=== PATIENT | male | born 1955 | race Asian ===

== ENCOUNTER 2016-08-28 15:16 | Inpatient (IN) | payer MEDICARE, OTHER ==
[~2016-08-28] VITALS: Ht 175.3 cm; Wt 87.1 kg
[~2016-08-28 15:16] MED LIST: ASPI-1093 PO; ATOR40TA28 PO; CARV12 PO; CINA30 PO; DSS100 PO; INSLAN SQ; INSNOV SQ; LISI-660 PO; PANT40TA25 PO; SEVEC800 PO; TICA90TA PO
[2016-08-28 15:26] LABS: GLUCOSE,POINT OF CARE 197 MG/DL (70-110)
[2016-08-28 16:10] LABS: HEMATOCRIT 28.6 % (41-53); HEMOGLOBIN 9.5 g/dL (13.5-17.5); MEAN CORPUSCULAR HEMOGLOBIN 28.6 pg (26.0-34.0); MEAN CORPUSCULAR HGB CONC 33.1 G/dL (31.0-37.0); MEAN CORPUSCULAR VOLUME 86 fL (80-100); PLATELET COUNT (AUTO) 298 K/uL (150-450); RED BLOOD CELL COUNT(AUTO) 3.32 MIL/uL (4.50-5.90); RED CELL DISTRIBUTION WIDTH 16.9 % (11.5-14.5); WHITE BLOOD COUNT (AUTO) 16.1 K/uL (4.5-11.0)
[2016-08-28 16:37] LABS: B-TYPE NATRIURETIC PEPTIDE 2850 pg/mL (0-100)
[2016-08-28 16:41] LABS: ANION GAP 14 mmol/L (8-16); CALCIUM, TOTAL 9.7 mg/dL (8.8-10.5); CARBON DIOXIDE 27 mmol/L (22-29); CHLORIDE 88 mmol/L (98-107); CREATININE 7.67 mg/dL (0.60-1.30); GLOMERULAR FILTR. RATE CALC 7 mL/min (>60); POTASSIUM 3.9 mmol/L (3.5-5.1); SODIUM SERUM 129 mmol/L (136-145); UREA NITROGEN, BLOOD 49 mg/dL (7-18)
[2016-08-28 16:45] LABS: BAND NEUTROPHILS % (MANUAL) 3 % (1-5); EOSINOPHILS % (MANUAL) 1 % (1-6); LYMPHOCYTES % (MANUAL) 8 % (22-44); REACTIVE LYMPHOCYTES 1 % (0-0); TOTAL CELLS COUNTED 100
[2016-08-28 16:48] LABS: INR 1.2 (0.9-1.1); PROTHROMBIN TIME 12.5 SEC (9.4-11.6)
[2016-08-28 16:50] LABS: WBC MORPHOLOGY TOXIC VACUOLATION
[2016-08-28 17:10] LABS: ALANINE AMINOTRANSFERASE 32 U/L (12-78); ALBUMIN 2.4 g/dL (3.4-5.0); ASPARTATE AMINOTRANSFERASE 63 U/L (15-37); BILIRUBIN,TOTAL 0.9 mg/dL (0.1-1.0); CREATINE KINASE MB 2.2 ng/mL (0-5); CREATINE KINASE, TOTAL 657 U/L (39-308); TOTAL PROTEIN, SERUM 7.3 g/dL (6.4-8.2)
[2016-08-28] MEDS ORDERED: KETOROLAC TROMETHAMINE 30 MG/ML VIAL IVP ONE (20:15)
[2016-08-28] MEDS ORDERED: HYDROmorphone 2 MG/ML SYRINGE IVP ONE (20:15)
[2016-08-28] MEDS ORDERED: ONDANSETRON HCL 4 MG/2 ML VIAL IVP ONE (20:15)
[2016-08-28] MEDS ORDERED: LIDOCAINE HCL BUFFERED 1% 20 ML VIAL INJ ONE (22:00)
[2016-08-28] MEDS ORDERED: ACETAMINOPHEN 325 MG TABLET PO PRN (22:30)
[2016-08-28] MEDS ORDERED: VANCOMYCIN HCL 1 GM/D5% WATER 200 ML IV ONE (22:30)
[2016-08-28] MEDS ORDERED: ONDANSETRON HCL 4 MG/2 ML VIAL IVP PRN (22:30)
[2016-08-28] MEDS ORDERED: 0.9% SODIUM CHLORIDE 10 ML SYRINGE IVP PRN (22:30)
[2016-08-28 23:03] LABS: GLUCOSE, CSF 107 mg/dL (50-80); TOTAL PROTEIN, CSF 38 mg/dL (15-45)
[2016-08-28 23:10] VITALS: BP 96/54
[2016-08-28] MEDS ORDERED: SODIUM CHLORIDE 0.9% 250 ML IV ONE (23:16)
[2016-08-28 23:52] LABS: APPEARANCE,CSF CLEAR (CLEAR); COLOR,CSF COLORLESS (COLORLESS); RED BLOOD CELL1,CSF 21.1 CMM (0-0)
[2016-08-29] MEDS ORDERED: INFLUENZA VIRUS VACCINE QVS 2016-17 (3YR+)/PF 60 MCG/0.5 ML SYRINGE IM ONE (00:45)
[2016-08-29] MEDS ORDERED: PNEUMOCOCCAL VACCINE POLYVALENT 0.5 ML VIAL [PPSV23] IM ONE (00:45)
[2016-08-29 04:34] VITALS: BP 99/59
[2016-08-29 07:21] VITALS: BP 132/98
[2016-08-29] MEDS: ASPIRIN 81 MG EC TABLET PO SCH (10:00)
[2016-08-29] MEDS ORDERED: DOCUSATE SODIUM 100 MG CAPSULE PO SCH (10:00)
[2016-08-29] MEDS: TICAGRELOR 90 MG TABLET PO SCH ×2 (10:00→21:45)
[2016-08-29] MEDS: CARVEDILOL 12.5 MG TABLET PO SCH ×2 (10:00→21:00)
[2016-08-29] MEDS: LISINOPRIL 5 MG TABLET PO SCH (10:00)
[2016-08-29] MEDS ORDERED: 0.9% SODIUM CHLORIDE 10 ML SYRINGE IVP PRN (10:15)
[2016-08-29] MEDS ORDERED: ONDANSETRON HCL 4 MG/2 ML VIAL IVP PRN (10:15)
[2016-08-29] MEDS ORDERED: DEXTROSE 50%-WATER 25 GM/50 ML SYRINGE IVP PRN (10:15)
[2016-08-29] MEDS: PANTOPRAZOLE SODIUM 40 MG/VIAL IVP SCH (10:15)
[2016-08-29] MEDS: DOCUSATE SODIUM 100 MG CAPSULE PO SCH ×2 (10:15→21:45)
[2016-08-29] MEDS ORDERED: SODIUM CHLORIDE 0.9% 2,000 ML IV ONE (10:32)
[2016-08-29] MEDS ORDERED: VANCOMYCIN HCL 1 GM/D5% WATER 200 ML IV ONE (11:00)
[2016-08-29 11:31] LABS: GLUCOSE COMMENT 1 Received Meds; GLUCOSE,POINT OF CARE 363 MG/DL (70-110)
[2016-08-29] MEDS: OxyCODONE HCL/ACETAMINOPHEN 5-325 MG TABLET PO PRN (13:02)
[2016-08-29] MEDS: INSULIN ASPART 100 UNITS/ML SQ PRN ×2 (13:28→17:16)
[2016-08-29] MEDS ORDERED: VANCOMYCIN HCL 1 GM/D5% WATER 200 ML IV PRN (14:00)
[2016-08-29] MEDS: SEVELAMER CARBONATE 800 MG TABLET PO SCH ×2 (14:50→18:00)
[2016-08-29 15:19] VITALS: BP 87/48
[2016-08-29] MEDS ORDERED: SODIUM CHLORIDE 0.9% 500 ML IV ONE (15:57)
[2016-08-29] MEDS ORDERED: DiphenhydrAMINE HCL 50 MG/ML VIAL IM ONE (16:53)
[2016-08-29] MEDS ORDERED: LIDOCAINE HCL/PF 1% 2 ML VIAL IM ONE (16:53)
[2016-08-29 17:31] LABS: GLUCOSE COMMENT 1 Received Meds; GLUCOSE,POINT OF CARE 170 MG/DL (70-110)
[2016-08-29 19:24] VITALS: BP 94/48
[2016-08-29 20:30] VITALS: BP 102/52
[2016-08-29] MEDS: ATORVASTATIN CALCIUM 40 MG TABLET PO SCH (21:47)
[2016-08-29 23:36] LABS: GLUCOSE COMMENT 1 Received Meds; GLUCOSE,POINT OF CARE 194 MG/DL (70-110)
[2016-08-30] VITALS (7 sets, daily range): BP systolic 80–123; BP diastolic 39–69
[2016-08-30] MEDS: INSULIN ASPART 100 UNITS/ML SQ PRN ×4 (05:38→21:16)
[2016-08-30 06:21] LABS: GLUCOSE COMMENT 1 Received Meds; GLUCOSE,POINT OF CARE 159 MG/DL (70-110)
[2016-08-30] MEDS: OxyCODONE HCL/ACETAMINOPHEN 5-325 MG TABLET PO PRN ×2 (06:32→09:11)
[2016-08-30 06:46] LABS: EOSINOPHILS % (AUTO) 0.8 % (1.0-6.0); HEMOGLOBIN 8.1 g/dL (13.5-17.5); LYMPHOCYTES # (AUTO) 0.8 K/uL (1.0-4.8); LYMPHOCYTES % (AUTO) 3.3 % (22.0-44.0); MEAN CORPUSCULAR HEMOGLOBIN 28.5 pg (26.0-34.0); MEAN CORPUSCULAR HGB CONC 32.2 G/dL (31.0-37.0); MEAN CORPUSCULAR VOLUME 88 fL (80-100); MONOCYTES # (AUTO) 1.9 K/uL (0.1-1.0); MONOCYTES % (AUTO) 7.7 % (2.0-9.0); NEUTROPHILS # (AUTO) 21.5 K/uL (1.8-7.7); PLATELET COUNT (AUTO) 247 K/uL (150-450); RED BLOOD CELL COUNT(AUTO) 2.83 MIL/uL (4.50-5.90); WHITE BLOOD COUNT (AUTO) 24.4 K/uL (4.5-11.0)
[2016-08-30 06:52] LABS: NEUTROPHILS % (AUTO) 88.2 % (40.0-70.0)
[2016-08-30 07:05] LABS: CALCIUM, TOTAL 8.8 mg/dL (8.8-10.5); CREATININE 6.36 mg/dL (0.60-1.30); POTASSIUM 4.2 mmol/L (3.5-5.1)
[2016-08-30] MEDS: CARVEDILOL 12.5 MG TABLET PO SCH ×2 (07:49→21:00)
[2016-08-30] MEDS: LISINOPRIL 5 MG TABLET PO SCH (07:49)
[2016-08-30] MEDS: ASPIRIN 81 MG EC TABLET PO SCH (09:00)
[2016-08-30] MEDS: TICAGRELOR 90 MG TABLET PO SCH ×2 (09:11→21:00)
[2016-08-30] MEDS: DOCUSATE SODIUM 100 MG CAPSULE PO SCH ×2 (09:12→21:00)
[2016-08-30] MEDS: SEVELAMER CARBONATE 800 MG TABLET PO SCH ×3 (09:12→17:09)
[2016-08-30] MEDS: PANTOPRAZOLE SODIUM 40 MG/VIAL IVP SCH (09:12)
[2016-08-30] MEDS: CINACALCET HCL 30 MG TABLET PO SCH (09:12)
[2016-08-30] MEDS: INSULIN DETEMIR 100 UNITS/ML SQ SCH (09:32)
[2016-08-30 12:31] LABS: GLUCOSE,POINT OF CARE 285 MG/DL (70-110)
[2016-08-30] MEDS: MIDODRINE HCL 5 MG TABLET PO SCH ×2 (14:33→21:00)
[2016-08-30] MEDS ORDERED: INDIUM IN-111 OXYQUINOLINE/.5MCL ISOTOPE 1 EA INJ INJ ONE (15:45)
[2016-08-30] MEDS ORDERED: ACETAMINOPHEN 325 MG TABLET ONE (15:53)
[2016-08-30] MEDS: ACETAMINOPHEN 325 MG TABLET PO PRN (16:00)
[2016-08-30] MEDS ORDERED: PHENYLEPHRINE 200 MG/D5%-WATER 250 ML IV PRN (17:13)
[2016-08-30] MEDS ORDERED: ACETAMINOPHEN 650 MG RECTAL SUPPOSITORY PR PRN (17:15)
[2016-08-30] MEDS ORDERED: OSELTAMIVIR PHOSPHATE 30 MG CAPSULE PO PRN (21:00)
[2016-08-30] MEDS ORDERED: OSELTAMIVIR PHOSPHATE 30 MG CAPSULE PO ONE (21:00)
[2016-08-30] MEDS: ATORVASTATIN CALCIUM 40 MG TABLET PO SCH (21:00)
[2016-08-30] MEDS: DOXYCYCLINE 100 MG in DEXTROSE 5%-WATER 100 ML IV SCH (21:16)
[2016-08-31] VITALS (12 sets, daily range): BP systolic 93–153; BP diastolic 42–86
[2016-08-31 00:05] LABS: INFLUENZA TYPE B NEGATIVE FOR TYPE B (NEGATIVE)
[2016-08-31] MEDS: DEXTRAN 70 0.1%/HYPROMELL 0.3% 0.9 ML OPHTHALMIC SOLUTION [PF] OU SCH ×5 (00:13→23:46)
[2016-08-31] MEDS: OxyCODONE HCL/ACETAMINOPHEN 5-325 MG TABLET PO PRN ×4 (01:44→21:56)
[2016-08-31] MEDS: ATORVASTATIN CALCIUM 40 MG TABLET PO SCH ×2 (01:57→20:07)
[2016-08-31 05:10] LABS: EOSINOPHILS % (AUTO) 1.21 % (1.0-6.0); HEMATOCRIT 26.2 % (41-53); HEMOGLOBIN 8.8 g/dL (13.5-17.5); LYMPHOCYTES # (AUTO) 1.1 K/uL (1.0-4.8); LYMPHOCYTES % (AUTO) 4.2 % (22.0-44.0); MEAN CORPUSCULAR HEMOGLOBIN 29.1 pg (26.0-34.0); MEAN CORPUSCULAR HGB CONC 33.5 G/dL (31.0-37.0); MEAN CORPUSCULAR VOLUME 87 fL (80-100); MONOCYTES # (AUTO) 1.9 K/uL (0.1-1.0); MONOCYTES % (AUTO) 7.4 % (2.0-9.0); NEUTROPHILS # (AUTO) 21.9 K/uL (1.8-7.7); PLATELET COUNT (AUTO) 241 K/uL (150-450); RED BLOOD CELL COUNT(AUTO) 3.02 MIL/uL (4.50-5.90); RED CELL DISTRIBUTION WIDTH 17.3 % (11.5-14.5); WHITE BLOOD COUNT (AUTO) 25.2 K/uL (4.5-11.0)
[2016-08-31 05:22] LABS: NEUTROPHILS % (AUTO) 87.2 % (40.0-70.0)
[2016-08-31 05:27] LABS: CALCIUM, TOTAL 8.8 mg/dL (8.8-10.5); CREATININE 7.85 mg/dL (0.60-1.30); MAGNESIUM 2.2 mg/dL (1.80-2.40); PHOSPHORUS 2.9 mg/dL (2.5-4.9); POTASSIUM 4.7 mmol/L (3.5-5.1)
[2016-08-31 06:02] LABS: RBC MORPHOLOGY COMMENT ABNORMAL RBC MORPH
[2016-08-31] MEDS: INSULIN ASPART 100 UNITS/ML SQ PRN ×3 (06:23→21:15)
[2016-08-31] MEDS: SEVELAMER CARBONATE 800 MG TABLET PO SCH ×4 (08:00→17:21)
[2016-08-31] MEDS ORDERED: SODIUM CHLORIDE 0.9% 2,000 ML IV ONE (08:24)
[2016-08-31] MEDS: EPOETIN ALFA 10,000 UNITS/ML 2 ML VIAL SQ SCH (08:34)
[2016-08-31] MEDS: DOCUSATE SODIUM 100 MG CAPSULE PO SCH ×2 (08:34→20:07)
[2016-08-31] MEDS: ASPIRIN 81 MG EC TABLET PO SCH (08:34)
[2016-08-31] MEDS: MIDODRINE HCL 5 MG TABLET PO SCH ×2 (08:35→20:08)
[2016-08-31 08:36] LABS: GLUCOSE COMMENT 1 Received Meds; GLUCOSE,POINT OF CARE 245 MG/DL (70-110)
[2016-08-31 08:36] LABS: GLUCOSE COMMENT 1 Received Meds; GLUCOSE,POINT OF CARE 242 MG/DL (70-110)
[2016-08-31 08:36] LABS: GLUCOSE COMMENT 1 Received Meds; GLUCOSE,POINT OF CARE 303 MG/DL (70-110)
[2016-08-31] MEDS: TICAGRELOR 90 MG TABLET PO SCH ×2 (08:36→20:08)
[2016-08-31] MEDS: INSULIN DETEMIR 100 UNITS/ML SQ SCH (08:36)
[2016-08-31] MEDS: CARVEDILOL 12.5 MG TABLET PO SCH ×2 (08:37→20:08)
[2016-08-31] MEDS: LISINOPRIL 5 MG TABLET PO SCH (08:37)
[2016-08-31] MEDS ORDERED: EPOETIN ALFA 10,000 UNITS/ML 2 ML VIAL SQ SCH (09:00)
[2016-08-31] MEDS: -POST HEMODIALYSIS NOTE- MISC SCH (09:00)
[2016-08-31] MEDS ORDERED: DiphenhydrAMINE HCL 50 MG/ML VIAL IVP PRN (09:15)
[2016-08-31] MEDS ORDERED: LIDOCAINE HCL/PF 1% 2 ML VIAL ID PRN (09:15)
[2016-08-31] MEDS ORDERED: MANNITOL 25%-12.5 GM/50 ML VIAL IVP PRN (09:15)
[2016-08-31] MEDS ORDERED: ALBUMIN HUMAN 25%-12.5GM/50ML IV BOTTLE IV PRN (09:15)
[2016-08-31] MEDS: PANTOPRAZOLE SODIUM 40 MG/VIAL IVP SCH (12:32)
[2016-08-31] MEDS: DOXYCYCLINE 100 MG in DEXTROSE 5%-WATER 100 ML IV SCH ×2 (12:32→20:07)
[2016-08-31] MEDS ORDERED: DiphenhydrAMINE HCL 50 MG/ML VIAL IVP ONE (16:20)
[2016-08-31] MEDS ORDERED: MANNITOL 25%-12.5 GM/50 ML VIAL IVP ONE (16:20)
[2016-08-31] MEDS ORDERED: LIDOCAINE HCL/PF 1% 2 ML VIAL IM ONE (16:20)
[2016-08-31] MEDS: CeFAZolin 1 GM/DEXTROSE 50 ML IV SCH (22:38)
[2016-09-01] VITALS (10 sets, daily range): BP systolic 90–147; BP diastolic 49–88
[2016-09-01] MEDS: OxyCODONE HCL/ACETAMINOPHEN 5-325 MG TABLET PO PRN ×4 (04:06→16:58)
[2016-09-01] MEDS ORDERED: VANCOMYCIN HCL 1 GM/D5% WATER 200 ML IV ONE (05:00)
[2016-09-01] MEDS: DEXTRAN 70 0.1%/HYPROMELL 0.3% 0.9 ML OPHTHALMIC SOLUTION [PF] OU SCH ×3 (05:15→17:14)
[2016-09-01] MEDS: INSULIN ASPART 100 UNITS/ML SQ PRN ×3 (05:17→17:15)
[2016-09-01] MEDS: SEVELAMER CARBONATE 800 MG TABLET PO SCH ×3 (07:49→17:13)
[2016-09-01] MEDS: PANTOPRAZOLE SODIUM 40 MG/VIAL IVP SCH (07:49)
[2016-09-01] MEDS: ASPIRIN 81 MG EC TABLET PO SCH (07:50)
[2016-09-01] MEDS: MIDODRINE HCL 5 MG TABLET PO SCH ×2 (07:50→22:38)
[2016-09-01] MEDS: DOCUSATE SODIUM 100 MG CAPSULE PO SCH ×2 (07:50→22:38)
[2016-09-01] MEDS: CINACALCET HCL 30 MG TABLET PO SCH (07:50)
[2016-09-01] MEDS: TICAGRELOR 90 MG TABLET PO SCH ×2 (07:50→22:38)
[2016-09-01] MEDS: LISINOPRIL 5 MG TABLET PO SCH (07:52)
[2016-09-01] MEDS: INSULIN DETEMIR 100 UNITS/ML SQ SCH (07:52)
[2016-09-01] MEDS: CARVEDILOL 12.5 MG TABLET PO SCH ×2 (07:53→22:38)
[2016-09-01] MEDS: -POST HEMODIALYSIS NOTE- MISC SCH (07:53)
[2016-09-01] MEDS: DOXYCYCLINE 100 MG in DEXTROSE 5%-WATER 100 ML IV SCH ×2 (10:52→22:39)
[2016-09-01 13:57] LABS: BASOPHILS # (AUTO) 0.01 K/uL (0.00-0.20); BASOPHILS % (AUTO) 0.1 % (0.0-2.0); EOSINOPHILS # (AUTO) 0.32 K/uL (0.00-0.70); HEMATOCRIT 25.5 % (41-53); HEMOGLOBIN 8.4 g/dL (13.5-17.5); LYMPHOCYTES # (AUTO) 0.7 K/uL (1.0-4.8); LYMPHOCYTES % (AUTO) 3.3 % (22.0-44.0); MEAN CORPUSCULAR HEMOGLOBIN 28.7 pg (26.0-34.0); MEAN CORPUSCULAR HGB CONC 32.9 G/dL (31.0-37.0); MEAN CORPUSCULAR VOLUME 87 fL (80-100); MONOCYTES # (AUTO) 1.5 K/uL (0.1-1.0); MONOCYTES % (AUTO) 6.6 % (2.0-9.0); NEUTROPHILS # (AUTO) 19.9 K/uL (1.8-7.7); PLATELET COUNT (AUTO) 242 K/uL (150-450); RED BLOOD CELL COUNT(AUTO) 2.93 MIL/uL (4.50-5.90); RED CELL DISTRIBUTION WIDTH 18.1 % (11.5-14.5); WHITE BLOOD COUNT (AUTO) 22.5 K/uL (4.5-11.0)
[2016-09-01 13:58] LABS: NEUTROPHILS % (AUTO) 88.6 % (40.0-70.0)
[2016-09-01 14:09] LABS: CALCIUM, TOTAL 9.1 mg/dL (8.8-10.5); CREATININE 6.4 mg/dL (0.60-1.30); POTASSIUM 4.8 mmol/L (3.5-5.1)
[2016-09-01 14:25] LABS: RBC MORPHOLOGY COMMENT ABNORMAL RBC MORPH
[2016-09-01 15:45] LABS: ERYTHROCYTE SEDIMENTATION RATE 134 MM/HR (0-15)
[2016-09-01 17:51] LABS: GLUCOSE COMMENT 1 Received Meds; GLUCOSE,POINT OF CARE 164 MG/DL (70-110)
[2016-09-01 17:51] LABS: GLUCOSE COMMENT 1 Received Meds; GLUCOSE,POINT OF CARE 170 MG/DL (70-110)
[2016-09-01 17:51] LABS: GLUCOSE,POINT OF CARE 120 MG/DL (70-110)
[2016-09-01 17:51] LABS: GLUCOSE COMMENT 1 Received Meds; GLUCOSE,POINT OF CARE 193 MG/DL (70-110)
[2016-09-01] MEDS ORDERED: SODIUM CHLORIDE 0.9% 250 ML IV ONE (22:18)
[2016-09-01] MEDS: ATORVASTATIN CALCIUM 40 MG TABLET PO SCH (22:38)
[2016-09-02] VITALS (9 sets, daily range): BP systolic 68–121; BP diastolic 35–72
[2016-09-02] MEDS: CeFAZolin 1 GM/DEXTROSE 50 ML IV SCH ×2 (00:55→22:52)
[2016-09-02] MEDS: DEXTRAN 70 0.1%/HYPROMELL 0.3% 0.9 ML OPHTHALMIC SOLUTION [PF] OU SCH ×5 (00:55→23:57)
[2016-09-02 01:01] LABS: GLUCOSE COMMENT 1 Received Meds; GLUCOSE,POINT OF CARE 159 MG/DL (70-110)
[2016-09-02 01:01] LABS: GLUCOSE COMMENT 1 Received Meds; GLUCOSE,POINT OF CARE 214 MG/DL (70-110)
[2016-09-02] MEDS: EPOETIN ALFA 10,000 UNITS/ML 2 ML VIAL SQ SCH (09:00)
[2016-09-02] MEDS: -POST HEMODIALYSIS NOTE- MISC SCH (09:00)
[2016-09-02] MEDS: SEVELAMER CARBONATE 800 MG TABLET PO SCH ×3 (09:34→18:00)
[2016-09-02] MEDS: DOCUSATE SODIUM 100 MG CAPSULE PO SCH ×2 (09:37→21:00)
[2016-09-02] MEDS: ACETAMINOPHEN 325 MG TABLET PO PRN (09:37)
[2016-09-02] MEDS: ASPIRIN 81 MG EC TABLET PO SCH (09:38)
[2016-09-02] MEDS: CARVEDILOL 12.5 MG TABLET PO SCH ×2 (09:38→21:00)
[2016-09-02] MEDS: PANTOPRAZOLE SODIUM 40 MG/VIAL IVP SCH (09:39)
[2016-09-02] MEDS: TICAGRELOR 90 MG TABLET PO SCH ×2 (09:40→21:00)
[2016-09-02] MEDS: DOXYCYCLINE 100 MG CAPSULE PO SCH ×2 (09:41→21:00)
[2016-09-02] MEDS: MIDODRINE HCL 5 MG TABLET PO SCH ×2 (09:44→21:00)
[2016-09-02] MEDS: LISINOPRIL 5 MG TABLET PO SCH (09:46)
[2016-09-02] MEDS: INSULIN DETEMIR 100 UNITS/ML SQ SCH (09:50)
[2016-09-02] MEDS: EPOETIN ALFA 10,000 UNITS/ML VIAL SQ SCH (11:15)
[2016-09-02] MEDS ORDERED: LIDOCAINE HCL/PF 1% 2 ML VIAL INJ ONE (12:00)
[2016-09-02 12:40] LABS: CALCIUM, TOTAL 9.2 mg/dL (8.8-10.5); CREATININE 8.07 mg/dL (0.60-1.30); POTASSIUM 5.8 mmol/L (3.5-5.1)
[2016-09-02] MEDS ORDERED: DiphenhydrAMINE HCL 50 MG/ML VIAL IVP PRN ×2 (13:45→14:15)
[2016-09-02] MEDS ORDERED: ALBUMIN HUMAN 25%-12.5GM/50ML IV BOTTLE IV PRN (14:15)
[2016-09-02] MEDS ORDERED: MANNITOL 25%-12.5 GM/50 ML VIAL IVP PRN (14:15)
[2016-09-02] MEDS ORDERED: LIDOCAINE HCL/PF 1% 2 ML VIAL ID PRN (14:15)
[2016-09-02] MEDS ORDERED: SODIUM CHLORIDE 0.9% 2,000 ML IV ONE (16:09)
[2016-09-02] MEDS: ATORVASTATIN CALCIUM 40 MG TABLET PO SCH (21:00)
[2016-09-02] MEDS ORDERED: SODIUM CHLORIDE 0.9% 250 ML IV ONE ×2 (22:00→22:07)
[2016-09-03] VITALS (8 sets, daily range): BP systolic 75–119; BP diastolic 39–56
[2016-09-03] MEDS: DEXTRAN 70 0.1%/HYPROMELL 0.3% 0.9 ML OPHTHALMIC SOLUTION [PF] OU SCH ×4 (06:00→23:52)
[2016-09-03 06:42] LABS: GLUCOSE,POINT OF CARE 127 MG/DL (70-110)
[2016-09-03 06:43] LABS: GLUCOSE,POINT OF CARE 104 MG/DL (70-110)
[2016-09-03 07:24] LABS: CALCIUM, TOTAL 9.3 mg/dL (8.8-10.5); CREATININE 5.11 mg/dL (0.60-1.30)
[2016-09-03] MEDS: SEVELAMER CARBONATE 800 MG TABLET PO SCH ×3 (08:00→18:33)
[2016-09-03] MEDS: DOCUSATE SODIUM 100 MG CAPSULE PO SCH ×2 (09:00→20:14)
[2016-09-03] MEDS: INSULIN DETEMIR 100 UNITS/ML SQ SCH (09:00)
[2016-09-03] MEDS: CARVEDILOL 12.5 MG TABLET PO SCH ×2 (09:00→21:00)
[2016-09-03] MEDS: ASPIRIN 81 MG EC TABLET PO SCH (09:00)
[2016-09-03] MEDS: LISINOPRIL 5 MG TABLET PO SCH (09:00)
[2016-09-03] MEDS: -POST HEMODIALYSIS NOTE- MISC SCH (09:00)
[2016-09-03] MEDS: TICAGRELOR 90 MG TABLET PO SCH ×2 (09:00→20:13)
[2016-09-03] MEDS: MIDODRINE HCL 5 MG TABLET PO SCH ×2 (09:59→20:13)
[2016-09-03] MEDS: DOXYCYCLINE 100 MG CAPSULE PO SCH ×2 (09:59→20:12)
[2016-09-03] MEDS: PANTOPRAZOLE SODIUM 40 MG/VIAL IVP SCH (09:59)
[2016-09-03] MEDS: INSULIN ASPART 100 UNITS/ML SQ PRN ×2 (12:16→22:13)
[2016-09-03 17:52] LABS: GLUCOSE COMMENT 1 Received Meds; GLUCOSE,POINT OF CARE 149 MG/DL (70-110)
[2016-09-03 17:52] LABS: GLUCOSE,POINT OF CARE 121 MG/DL (70-110)
[2016-09-03 17:53] LABS: GLUCOSE COMMENT 1 Received Meds; GLUCOSE,POINT OF CARE 285 MG/DL (70-110)
[2016-09-03 17:53] LABS: GLUCOSE,POINT OF CARE 189 MG/DL (70-110)
[2016-09-03] MEDS: ATORVASTATIN CALCIUM 40 MG TABLET PO SCH (20:14)
[2016-09-03] MEDS ORDERED: SODIUM CHLORIDE 0.9% 250 ML IV ONE (22:09)
[2016-09-03] MEDS: CeFAZolin 1 GM/DEXTROSE 50 ML IV SCH (22:12)
[2016-09-04] VITALS (9 sets, daily range): BP systolic 89–121; BP diastolic 31–64
[2016-09-04] MEDS: OxyCODONE HCL/ACETAMINOPHEN 5-325 MG TABLET PO PRN ×2 (04:10→13:22)
[2016-09-04 05:51] LABS: HEMATOCRIT 26.5 % (41-53); HEMOGLOBIN 8.5 g/dL (13.5-17.5); MEAN CORPUSCULAR HEMOGLOBIN 28.3 pg (26.0-34.0); MEAN CORPUSCULAR HGB CONC 32.1 G/dL (31.0-37.0); MEAN CORPUSCULAR VOLUME 88 fL (80-100); PLATELET COUNT (AUTO) 278 K/uL (150-450); RED CELL DISTRIBUTION WIDTH 17.9 % (11.5-14.5); WHITE BLOOD COUNT (AUTO) 17.1 K/uL (4.5-11.0)
[2016-09-04] MEDS: DEXTRAN 70 0.1%/HYPROMELL 0.3% 0.9 ML OPHTHALMIC SOLUTION [PF] OU SCH ×3 (06:00→17:31)
[2016-09-04 06:08] LABS: CALCIUM, TOTAL 8.6 mg/dL (8.8-10.5); CREATININE 6.79 mg/dL (0.60-1.30); POTASSIUM 4.8 mmol/L (3.5-5.1)
[2016-09-04] MEDS: INSULIN ASPART 100 UNITS/ML SQ PRN ×3 (06:13→17:35)
[2016-09-04 07:12] LABS: BAND NEUTROPHILS % (MANUAL) 8 % (1-5); LYMPHOCYTES % (MANUAL) 6 % (22-44); RBC MORPHOLOGY COMMENT ABNORMAL RBC MORPH; TOTAL CELLS COUNTED 100
[2016-09-04] MEDS: SEVELAMER CARBONATE 800 MG TABLET PO SCH ×3 (08:00→17:31)
[2016-09-04] MEDS: INSULIN DETEMIR 100 UNITS/ML SQ SCH (08:22)
[2016-09-04] MEDS: DOCUSATE SODIUM 100 MG CAPSULE PO SCH ×2 (09:00→20:52)
[2016-09-04] MEDS: PANTOPRAZOLE SODIUM 40 MG/VIAL IVP SCH (10:06)
[2016-09-04] MEDS: DOXYCYCLINE 100 MG CAPSULE PO SCH ×2 (10:11→20:52)
[2016-09-04] MEDS: TICAGRELOR 90 MG TABLET PO SCH ×2 (10:11→20:52)
[2016-09-04] MEDS: ASPIRIN 81 MG EC TABLET PO SCH (10:11)
[2016-09-04] MEDS: MIDODRINE HCL 5 MG TABLET PO SCH ×2 (10:11→20:52)
[2016-09-04] MEDS: CINACALCET HCL 30 MG TABLET PO SCH (10:11)
[2016-09-04] MEDS: CARVEDILOL 12.5 MG TABLET PO SCH (10:11)
[2016-09-04] MEDS: LISINOPRIL 5 MG TABLET PO SCH (10:12)
[2016-09-04] MEDS ORDERED: FentaNYL CITRATE-PF 100 MCG/2 ML VIAL ONE (15:02)
[2016-09-04] MEDS ORDERED: BENZOCAINE 20% 50 MCG/SPRAY 57 GM ONE (15:03)
[2016-09-04] MEDS ORDERED: MIDAZOLAM HCL 2 MG/2 ML VIAL ONE (15:03)
[2016-09-04] MEDS ORDERED: NALOXONE HCL 0.4 MG/ML VIAL ONE (15:29)
[2016-09-04] MEDS ORDERED: NALOXONE HCL 0.4 MG/ML VIAL IVP ONE (15:30)
[2016-09-04] MEDS ORDERED: FentaNYL CITRATE-PF 100 MCG/2 ML VIAL IVP ONE (15:30)
[2016-09-04] MEDS ORDERED: MIDAZOLAM HCL 2 MG/2 ML VIAL IVP ONE (15:30)
[2016-09-04] MEDS ORDERED: BENZOCAINE 20% 50 MCG/SPRAY 57 GM TP ONE (15:30)
[2016-09-04] MEDS ORDERED: SODIUM CHLORIDE 0.9% 250 ML IV ONE (16:00)
[2016-09-04 17:32] LABS: GLUCOSE COMMENT 1 Received Meds; GLUCOSE,POINT OF CARE 152 MG/DL (70-110)
[2016-09-04 17:32] LABS: GLUCOSE COMMENT 1 Received Meds; GLUCOSE,POINT OF CARE 331 MG/DL (70-110)
[2016-09-04 17:37] LABS: GLUCOSE COMMENT 1 Received Meds; GLUCOSE,POINT OF CARE 347 MG/DL (70-110)
[2016-09-04] MEDS: ATORVASTATIN CALCIUM 40 MG TABLET PO SCH (20:52)
[2016-09-04] MEDS ORDERED: CARVEDILOL 6.25 MG TABLET PO SCH (21:00)
[2016-09-05] MEDS: CeFAZolin 1 GM/DEXTROSE 50 ML IV SCH ×2 (00:06→23:23)
[2016-09-05] MEDS: DEXTRAN 70 0.1%/HYPROMELL 0.3% 0.9 ML OPHTHALMIC SOLUTION [PF] OU SCH ×5 (00:07→23:55)
[2016-09-05 04:10] VITALS: BP 110/46
[2016-09-05] MEDS: INSULIN ASPART 100 UNITS/ML SQ PRN ×3 (05:44→21:35)
[2016-09-05] MEDS: SEVELAMER CARBONATE 800 MG TABLET PO SCH ×3 (08:00→18:44)
[2016-09-05 08:09] VITALS: BP 108/52
[2016-09-05] MEDS: INSULIN DETEMIR 100 UNITS/ML SQ SCH (08:26)
[2016-09-05 08:31] LABS: GLUCOSE,POINT OF CARE 109 MG/DL (70-110)
[2016-09-05] MEDS ORDERED: SODIUM CHLORIDE 0.9% 2,000 ML IV ONE (08:33)
[2016-09-05 08:36] LABS: GLUCOSE COMMENT 1 Received Meds; GLUCOSE,POINT OF CARE 143 MG/DL (70-110)
[2016-09-05] MEDS ORDERED: HEPARIN SODIUM,PORCINE 1,000 UNITS/ML 10 ML VIAL ONE (08:52)
[2016-09-05] MEDS: PANTOPRAZOLE SODIUM 40 MG/VIAL IVP SCH (09:00)
[2016-09-05] MEDS ORDERED: INDIUM IN-111 OXYQUINOLINE/.5MCL ISOTOPE 1 EA INJ INJ ONE (12:30)
[2016-09-05] MEDS: DOCUSATE SODIUM 100 MG CAPSULE PO SCH ×2 (13:01→21:28)
[2016-09-05] MEDS: TICAGRELOR 90 MG TABLET PO SCH ×2 (13:01→21:28)
[2016-09-05] MEDS: ASPIRIN 81 MG EC TABLET PO SCH (13:02)
[2016-09-05] MEDS: DOXYCYCLINE 100 MG CAPSULE PO SCH ×2 (13:02→21:27)
[2016-09-05] MEDS: MIDODRINE HCL 5 MG TABLET PO SCH ×2 (13:02→21:27)
[2016-09-05] MEDS: EPOETIN ALFA 10,000 UNITS/ML VIAL SQ SCH (13:02)
[2016-09-05] MEDS: VITAMIN B COMP/VIT C/FOLIC ACID CAPSULE PO SCH (13:02)
[2016-09-05 16:17] VITALS: BP 106/57
[2016-09-05] MEDS: OxyCODONE HCL/ACETAMINOPHEN 5-325 MG TABLET PO PRN (16:32)
[2016-09-05 20:45] VITALS: BP 120/65
[2016-09-05] MEDS: ATORVASTATIN CALCIUM 40 MG TABLET PO SCH (21:28)
[2016-09-05] MEDS: CARVEDILOL 3.125 MG TABLET PO SCH (21:28)
[2016-09-06 00:06] VITALS: BP 99/63
[2016-09-06 04:03] VITALS: BP 104/64
[2016-09-06] MEDS: DEXTRAN 70 0.1%/HYPROMELL 0.3% 0.9 ML OPHTHALMIC SOLUTION [PF] OU SCH ×3 (06:14→20:36)
[2016-09-06 07:16] LABS: BASOPHILS % (AUTO) 0.4 % (0.0-2.0); EOSINOPHILS % (AUTO) 1.3 % (1.0-6.0); HEMATOCRIT 24.8 % (41-53); HEMOGLOBIN 7.9 g/dL (13.5-17.5); LYMPHOCYTES % (AUTO) 6.9 % (22.0-44.0); MEAN CORPUSCULAR HEMOGLOBIN 28.3 pg (26.0-34.0); MEAN CORPUSCULAR VOLUME 88 fL (80-100); MONOCYTES # (AUTO) 0.8 K/uL (0.1-1.0); MONOCYTES % (AUTO) 5.6 % (2.0-9.0); NEUTROPHILS # (AUTO) 12.1 K/uL (1.8-7.7); PLATELET COUNT (AUTO) 328 K/uL (150-450); RED BLOOD CELL COUNT(AUTO) 2.81 MIL/uL (4.50-5.90); RED CELL DISTRIBUTION WIDTH 17.9 % (11.5-14.5); WHITE BLOOD COUNT (AUTO) 14.1 K/uL (4.5-11.0)
[2016-09-06 07:22] LABS: CALCIUM, TOTAL 8.5 mg/dL (8.8-10.5); CREATININE 6.05 mg/dL (0.60-1.30); NEUTROPHILS % (AUTO) 85.8 % (40.0-70.0); POTASSIUM 4.9 mmol/L (3.5-5.1)
[2016-09-06 07:41] VITALS: BP 122/54
[2016-09-06] MEDS ORDERED: FentaNYL CITRATE-PF 100 MCG/2 ML VIAL ONE (08:06)
[2016-09-06] MEDS ORDERED: MIDAZOLAM HCL 2 MG/2 ML VIAL ONE (08:06)
[2016-09-06] MEDS ORDERED: BENZOCAINE 20% 50 MCG/SPRAY 57 GM ONE (08:07)
[2016-09-06 08:26] LABS: RBC MORPHOLOGY COMMENT ABNORMAL RBC MORPH
[2016-09-06] MEDS: DOXYCYCLINE 100 MG CAPSULE PO SCH (10:32)
[2016-09-06] MEDS: SEVELAMER CARBONATE 800 MG TABLET PO SCH ×3 (10:35→18:00)
[2016-09-06] MEDS: TICAGRELOR 90 MG TABLET PO SCH ×2 (10:36→20:36)
[2016-09-06] MEDS: ASPIRIN 81 MG EC TABLET PO SCH (10:37)
[2016-09-06] MEDS: CARVEDILOL 3.125 MG TABLET PO SCH (10:37)
[2016-09-06] MEDS: DOCUSATE SODIUM 100 MG CAPSULE PO SCH ×2 (10:37→20:36)
[2016-09-06] MEDS: VITAMIN B COMP/VIT C/FOLIC ACID CAPSULE PO SCH (10:38)
[2016-09-06] MEDS: MIDODRINE HCL 5 MG TABLET PO SCH ×2 (10:38→20:37)
[2016-09-06] MEDS: CINACALCET HCL 30 MG TABLET PO SCH (10:39)
[2016-09-06] MEDS: OxyCODONE HCL/ACETAMINOPHEN 5-325 MG TABLET PO PRN ×2 (10:40→12:42)
[2016-09-06] MEDS: INSULIN DETEMIR 100 UNITS/ML SQ SCH (10:41)
[2016-09-06] MEDS: PANTOPRAZOLE SODIUM 40 MG/VIAL IVP SCH (10:48)
[2016-09-06 11:21] LABS: GLUCOSE COMMENT 1 Received Meds; GLUCOSE,POINT OF CARE 213 MG/DL (70-110)
[2016-09-06 11:45] VITALS: BP 133/71
[2016-09-06] MEDS: INSULIN ASPART 100 UNITS/ML SQ PRN (12:40)
[2016-09-06 15:50] VITALS: BP 114/63
[2016-09-06] MEDS ORDERED: SODIUM CHLORIDE 0.9% 100 ML ONE (19:07)
[2016-09-06] MEDS ORDERED: IOVERSOL 350 MG/ML 50 ML VIAL ONE (19:08)
[2016-09-06] MEDS ORDERED: IOVERSOL 350 MG/ML 100 ML VIAL ONE (19:08)
[2016-09-06 20:08] VITALS: BP 93/52
[2016-09-06] MEDS: ATORVASTATIN CALCIUM 40 MG TABLET PO SCH (20:37)
[2016-09-06 23:57] LABS: GLUCOSE,POINT OF CARE 112 MG/DL (70-110)
[2016-09-07] VITALS (7 sets, daily range): BP systolic 94–130; BP diastolic 34–73
[2016-09-07] MEDS ORDERED: SODIUM CHLORIDE 0.9% 250 ML IV ONE (00:04)
[2016-09-07] MEDS: CeFAZolin 1 GM/DEXTROSE 50 ML IV SCH ×2 (00:06→23:33)
[2016-09-07] MEDS: DEXTRAN 70 0.1%/HYPROMELL 0.3% 0.9 ML OPHTHALMIC SOLUTION [PF] OU SCH ×5 (00:06→23:34)
[2016-09-07] MEDS ORDERED: MIDAZOLAM HCL 2 MG/2 ML VIAL IVP ONE (00:33)
[2016-09-07] MEDS ORDERED: KETAMINE HCL 50 MG/ML 10 ML VIAL IVP ONE (00:33)
[2016-09-07] MEDS ORDERED: FentaNYL CITRATE-PF 100 MCG/2 ML VIAL IVP ONE (00:33)
[2016-09-07 06:56] LABS: GLUCOSE,POINT OF CARE 145 MG/DL (70-110)
[2016-09-07 06:56] LABS: GLUCOSE,POINT OF CARE 109 MG/DL (70-110)
[2016-09-07] MEDS: SEVELAMER CARBONATE 800 MG TABLET PO SCH ×3 (08:00→18:09)
[2016-09-07] MEDS: EPOETIN ALFA 10,000 UNITS/ML VIAL SQ SCH (08:51)
[2016-09-07] MEDS: PANTOPRAZOLE SODIUM 40 MG/VIAL IVP SCH (08:51)
[2016-09-07] MEDS: INSULIN DETEMIR 100 UNITS/ML SQ SCH (09:00)
[2016-09-07] MEDS ORDERED: BISACODYL 10 MG RECTAL RECTAL SUPPOSITORY PR PRN (09:45)
[2016-09-07] MEDS ORDERED: SODIUM CHLORIDE 0.9% 0 ML IV ONE (09:58)
[2016-09-07] MEDS ORDERED: SODIUM CHLORIDE 0.9% 500 ML IV ONE ×2 (10:00→10:03)
[2016-09-07] MEDS ORDERED: SODIUM CHLORIDE 0.9% 10 ML ONE (10:29)
[2016-09-07] MEDS ORDERED: SODIUM CHLORIDE 0.9% 1,000 ML IV ONE (10:30)
[2016-09-07 10:33] LABS: CALCIUM, TOTAL 8.7 mg/dL (8.8-10.5); CREATININE 4.09 mg/dL (0.60-1.30); POTASSIUM 4.3 mmol/L (3.5-5.1)
[2016-09-07] MEDS: LIDOCAINE HCL/PF 1% 30 ML VIAL ONE ×2 (11:17→11:48)
[2016-09-07] MEDS ORDERED: FentaNYL CITRATE-PF 100 MCG/2 ML VIAL IVP PRN (12:15)
[2016-09-07] MEDS ORDERED: HYDROCODONE/ACETAMINOPHEN 5-325 MG TABLET PO PRN (13:00)
[2016-09-07] MEDS: MIDODRINE HCL 5 MG TABLET PO SCH ×2 (14:14→21:10)
[2016-09-07] MEDS: VITAMIN B COMP/VIT C/FOLIC ACID CAPSULE PO SCH (14:14)
[2016-09-07] MEDS: ASPIRIN 81 MG EC TABLET PO SCH (14:14)
[2016-09-07] MEDS: DOCUSATE SODIUM 100 MG CAPSULE PO SCH ×2 (14:14→21:00)
[2016-09-07] MEDS: OXYGEN THERAPY IH SCH ×2 (14:15→20:52)
[2016-09-07] MEDS: TICAGRELOR 90 MG TABLET PO SCH ×2 (14:15→21:10)
[2016-09-07] MEDS ORDERED: DiphenhydrAMINE HCL 50 MG/ML VIAL IVP ONE (17:24)
[2016-09-07] MEDS ORDERED: LIDOCAINE HCL/PF 1% 2 ML VIAL INJ ONE (17:24)
[2016-09-07] MEDS: ATORVASTATIN CALCIUM 40 MG TABLET PO SCH (21:10)
[2016-09-07] MEDS ORDERED: LIDOCAINE HCL/PF 2% 5 ML VIAL IM ONE (22:26)
[2016-09-07] MEDS ORDERED: METOCLOPRAMIDE HCL 5 MG/ML 2 ML VIAL IVP ONE (22:26)
[2016-09-07] MEDS ORDERED: ONDANSETRON HCL 4 MG/2 ML VIAL IVP ONE (22:26)
[2016-09-07] MEDS ORDERED: PROPOFOL 1% 20 ML VIAL IVP ONE (22:26)
[2016-09-08] VITALS (7 sets, daily range): BP systolic 95–118; BP diastolic 33–96
[2016-09-08] MEDS: OxyCODONE HCL/ACETAMINOPHEN 5-325 MG TABLET PO PRN (01:57)
[2016-09-08] MEDS: DEXTRAN 70 0.1%/HYPROMELL 0.3% 0.9 ML OPHTHALMIC SOLUTION [PF] OU SCH ×3 (05:54→18:24)
[2016-09-08] MEDS: INSULIN ASPART 100 UNITS/ML SQ PRN ×3 (06:24→21:37)
[2016-09-08 06:46] LABS: BASOPHILS % (AUTO) 0.4 % (0.0-2.0); EOSINOPHILS % (AUTO) 0.6 % (1.0-6.0); HEMATOCRIT 24.4 % (41-53); HEMOGLOBIN 7.6 g/dL (13.5-17.5); LYMPHOCYTES # (AUTO) 0.6 K/uL (1.0-4.8); LYMPHOCYTES % (AUTO) 4.1 % (22.0-44.0); MEAN CORPUSCULAR HEMOGLOBIN 27.7 pg (26.0-34.0); MEAN CORPUSCULAR HGB CONC 31.1 G/dL (31.0-37.0); MEAN CORPUSCULAR VOLUME 89 fL (80-100); MONOCYTES # (AUTO) 0.6 K/uL (0.1-1.0); MONOCYTES % (AUTO) 3.5 % (2.0-9.0); NEUTROPHILS # (AUTO) 14.6 K/uL (1.8-7.7); PLATELET COUNT (AUTO) 365 K/uL (150-450); RED BLOOD CELL COUNT(AUTO) 2.74 MIL/uL (4.50-5.90); RED CELL DISTRIBUTION WIDTH 18.2 % (11.5-14.5)
[2016-09-08 07:03] LABS: NEUTROPHILS % (AUTO) 91.4 % (40.0-70.0)
[2016-09-08 07:08] LABS: ALBUMIN 1.6 g/dL (3.4-5.0); ANION GAP 11 mmol/L (8-16); ASPARTATE AMINOTRANSFERASE 26 U/L (15-37); BILIRUBIN,TOTAL 0.4 mg/dL (0.1-1.0); CALCIUM, TOTAL 8.8 mg/dL (8.8-10.5); CARBON DIOXIDE 25 mmol/L (22-29); CHLORIDE 98 mmol/L (98-107); CREATININE 5.87 mg/dL (0.60-1.30); GLOMERULAR FILTR. RATE CALC 10 mL/min (>60); POTASSIUM 5.3 mmol/L (3.5-5.1); SODIUM SERUM 134 mmol/L (136-145); TOTAL PROTEIN, SERUM 6.8 g/dL (6.4-8.2); UREA NITROGEN, BLOOD 36 mg/dL (7-18)
[2016-09-08 07:35] LABS: ALANINE AMINOTRANSFERASE < 6 U/L (12-78)
[2016-09-08] MEDS: INSULIN DETEMIR 100 UNITS/ML SQ SCH (09:00)
[2016-09-08] MEDS: METOPROLOL TARTRATE 25 MG TABLET PO SCH ×2 (09:25→21:35)
[2016-09-08] MEDS: PANTOPRAZOLE SODIUM 40 MG/VIAL IVP SCH (09:25)
[2016-09-08] MEDS: CINACALCET HCL 30 MG TABLET PO SCH (09:26)
[2016-09-08] MEDS: NITROGLYCERIN 2% (1 GM=INCH) PACKET TP SCH ×2 (09:26→18:25)
[2016-09-08] MEDS: VITAMIN B COMP/VIT C/FOLIC ACID CAPSULE PO SCH (09:26)
[2016-09-08] MEDS: TICAGRELOR 90 MG TABLET PO SCH ×2 (09:26→21:34)
[2016-09-08] MEDS: ASPIRIN 81 MG EC TABLET PO SCH (09:26)
[2016-09-08] MEDS: DOCUSATE SODIUM 100 MG CAPSULE PO SCH ×2 (09:26→21:35)
[2016-09-08] MEDS: SEVELAMER CARBONATE 800 MG TABLET PO SCH ×2 (09:27→12:00)
[2016-09-08] MEDS: OXYGEN THERAPY IH SCH ×2 (09:27→21:38)
[2016-09-08 09:32] LABS: RBC MORPHOLOGY COMMENT ABNORMAL RBC MORPH
[2016-09-08 10:25] LABS: INR 1.3 (0.9-1.1); PROTHROMBIN TIME 13.4 SEC (9.4-11.6)
[2016-09-08] MEDS ORDERED: HEPARIN SODIUM 1000 UNITS/NS 500 ML ONE (11:07)
[2016-09-08] MEDS ORDERED: HEPARIN SODIUM,PORCINE 1,000 UNITS/ML 10 ML VIAL ONE (11:07)
[2016-09-08] MEDS ORDERED: LIDOCAINE HCL/PF 1% 30 ML VIAL ONE (11:08)
[2016-09-08] MEDS ORDERED: EPOETIN ALFA 10,000 UNITS/ML 2 ML VIAL SQ ONE (13:30)
[2016-09-08 20:41] LABS: GLUCOSE COMMENT 1 Received Meds; GLUCOSE,POINT OF CARE 284 MG/DL (70-110)
[2016-09-08 20:42] LABS: GLUCOSE,POINT OF CARE 207 MG/DL (70-110)
[2016-09-08 20:42] LABS: GLUCOSE,POINT OF CARE 130 MG/DL (70-110)
[2016-09-08 20:42] LABS: GLUCOSE COMMENT 1 Received Meds; GLUCOSE,POINT OF CARE 164 MG/DL (70-110)
[2016-09-08 20:42] LABS: GLUCOSE,POINT OF CARE 134 MG/DL (70-110)
[2016-09-08 20:42] LABS: GLUCOSE COMMENT 1 Received Meds; GLUCOSE,POINT OF CARE 155 MG/DL (70-110)
[2016-09-08 20:42] LABS: GLUCOSE COMMENT 1 Received Meds; GLUCOSE,POINT OF CARE 228 MG/DL (70-110)
[2016-09-08 20:42] LABS: GLUCOSE,POINT OF CARE 106 MG/DL (70-110)
[2016-09-08 20:42] LABS: GLUCOSE,POINT OF CARE 128 MG/DL (70-110)
[2016-09-08 20:43] LABS: GLUCOSE,POINT OF CARE 124 MG/DL (70-110)
[2016-09-08] MEDS: ATORVASTATIN CALCIUM 40 MG TABLET PO SCH (21:34)
[2016-09-09] MEDS: DEXTRAN 70 0.1%/HYPROMELL 0.3% 0.9 ML OPHTHALMIC SOLUTION [PF] OU SCH ×4 (00:36→18:09)
[2016-09-09] MEDS: CeFAZolin 1 GM/DEXTROSE 50 ML IV SCH (00:36)
[2016-09-09] MEDS: NITROGLYCERIN 2% (1 GM=INCH) PACKET TP SCH ×3 (00:36→16:00)
[2016-09-09 03:59] VITALS: BP 105/63
[2016-09-09] MEDS: OxyCODONE HCL/ACETAMINOPHEN 5-325 MG TABLET PO PRN ×2 (04:15→16:07)
[2016-09-09 06:15] LABS: BASOPHILS # (AUTO) 0.07 K/uL (0.00-0.20); BASOPHILS % (AUTO) 0.5 % (0.0-2.0); EOSINOPHILS # (AUTO) 0.16 K/uL (0.00-0.70); EOSINOPHILS % (AUTO) 1.07 % (1.0-6.0); HEMATOCRIT 22.9 % (41-53); HEMOGLOBIN 7.4 g/dL (13.5-17.5); LYMPHOCYTES # (AUTO) 0.8 K/uL (1.0-4.8); LYMPHOCYTES % (AUTO) 5.1 % (22.0-44.0); MEAN CORPUSCULAR HGB CONC 32.2 G/dL (31.0-37.0); MEAN CORPUSCULAR VOLUME 87 fL (80-100); MONOCYTES # (AUTO) 0.6 K/uL (0.1-1.0); MONOCYTES % (AUTO) 4.3 % (2.0-9.0); NEUTROPHILS # (AUTO) 13.3 K/uL (1.8-7.7); PLATELET COUNT (AUTO) 362 K/uL (150-450); RED BLOOD CELL COUNT(AUTO) 2.63 MIL/uL (4.50-5.90); RED CELL DISTRIBUTION WIDTH 18.3 % (11.5-14.5); WHITE BLOOD COUNT (AUTO) 14.9 K/uL (4.5-11.0)
[2016-09-09] MEDS: INSULIN ASPART 100 UNITS/ML SQ PRN ×2 (06:17→12:09)
[2016-09-09 06:45] LABS: ALBUMIN 1.7 g/dL (3.4-5.0); ANION GAP 12 mmol/L (8-16); ASPARTATE AMINOTRANSFERASE 21 U/L (15-37); BILIRUBIN,TOTAL 0.4 mg/dL (0.1-1.0); CALCIUM, TOTAL 8.7 mg/dL (8.8-10.5); CARBON DIOXIDE 24 mmol/L (22-29); CHLORIDE 98 mmol/L (98-107); CREATININE 7.42 mg/dL (0.60-1.30); GLOMERULAR FILTR. RATE CALC 8 mL/min (>60); PHOSPHORUS 5.6 mg/dL (2.5-4.9); POTASSIUM 5.6 mmol/L (3.5-5.1); SODIUM SERUM 134 mmol/L (136-145); TOTAL PROTEIN, SERUM 6.9 g/dL (6.4-8.2); UREA NITROGEN, BLOOD 47 mg/dL (7-18)
[2016-09-09 06:55] LABS: ALANINE AMINOTRANSFERASE < 6 U/L (12-78)
[2016-09-09 07:00] LABS: NEUTROPHILS % (AUTO) 89.1 % (40.0-70.0)
[2016-09-09 07:33] VITALS: BP 105/66
[2016-09-09 07:41] LABS: RBC MORPHOLOGY COMMENT ABNORMAL RBC MORPH
[2016-09-09] MEDS: ASPIRIN 81 MG EC TABLET PO SCH (09:10)
[2016-09-09] MEDS: TICAGRELOR 90 MG TABLET PO SCH ×2 (09:10→21:15)
[2016-09-09] MEDS: METOPROLOL TARTRATE 25 MG TABLET PO SCH ×2 (09:10→21:15)
[2016-09-09] MEDS: VITAMIN B COMP/VIT C/FOLIC ACID CAPSULE PO SCH (09:10)
[2016-09-09] MEDS: PANTOPRAZOLE SODIUM 40 MG/VIAL IVP SCH (09:10)
[2016-09-09] MEDS: DOCUSATE SODIUM 100 MG CAPSULE PO SCH ×2 (09:13→21:15)
[2016-09-09] MEDS: EPOETIN ALFA 10,000 UNITS/ML 2 ML VIAL SQ SCH (09:17)
[2016-09-09] MEDS: INSULIN DETEMIR 100 UNITS/ML SQ SCH (09:20)
[2016-09-09] MEDS: OXYGEN THERAPY IH SCH ×2 (09:41→21:15)
[2016-09-09 11:11] VITALS: BP 110/65
[2016-09-09] MEDS ORDERED: DiphenhydrAMINE HCL 50 MG/ML VIAL IM ONE (16:21)
[2016-09-09] MEDS ORDERED: HEPARIN SODIUM,PORCINE 1,000 UNITS/ML VIAL IVP ONE (16:21)
[2016-09-09 18:16] VITALS: BP_SYST 143; BP_SYST 145; BP_DIAS 61; BP_DIAS 81
[2016-09-09 19:32] VITALS: BP 112/61
[2016-09-09 20:11] LABS: GLUCOSE COMMENT 1 Received Meds; GLUCOSE,POINT OF CARE 100 MG/DL (70-110)
[2016-09-09] MEDS: ATORVASTATIN CALCIUM 40 MG TABLET PO SCH (21:15)
[2016-09-09] MEDS: CeFAZolin 2 GM/DEXTROSE 50 ML IV SCH (22:07)
[2016-09-09 23:39] VITALS: BP 116/42
[2016-09-10] MEDS: NITROGLYCERIN 2% (1 GM=INCH) PACKET TP SCH ×4 (01:23→23:52)
[2016-09-10] MEDS: DEXTRAN 70 0.1%/HYPROMELL 0.3% 0.9 ML OPHTHALMIC SOLUTION [PF] OU SCH ×5 (01:23→23:52)
[2016-09-10 04:14] VITALS: BP 131/52
[2016-09-10 06:57] LABS: GLUCOSE COMMENT 1 Received Meds; GLUCOSE,POINT OF CARE 156 MG/DL (70-110)
[2016-09-10 06:57] LABS: GLUCOSE,POINT OF CARE 201 MG/DL (70-110)
[2016-09-10 06:57] LABS: GLUCOSE COMMENT 1 Received Meds; GLUCOSE,POINT OF CARE 223 MG/DL (70-110)
[2016-09-10 06:57] LABS: GLUCOSE,POINT OF CARE 185 MG/DL (70-110)
[2016-09-10 06:57] LABS: GLUCOSE COMMENT 1 Received Meds; GLUCOSE,POINT OF CARE 285 MG/DL (70-110)
[2016-09-10 06:57] LABS: GLUCOSE COMMENT 1 Received Meds; GLUCOSE,POINT OF CARE 197 MG/DL (70-110)
[2016-09-10 06:57] LABS: GLUCOSE,POINT OF CARE 221 MG/DL (70-110)
[2016-09-10 07:01] LABS: GLUCOSE,POINT OF CARE 92 MG/DL (70-110)
[2016-09-10 07:01] LABS: GLUCOSE,POINT OF CARE 80 MG/DL (70-110)
[2016-09-10 07:02] LABS: GLUCOSE,POINT OF CARE 100 MG/DL (70-110)
[2016-09-10 07:32] VITALS: BP 129/48
[2016-09-10 07:35] LABS: BASOPHILS % (AUTO) 0.6 % (0.0-2.0); EOSINOPHILS % (AUTO) 2.2 % (1.0-6.0); HEMATOCRIT 24.8 % (41-53); HEMOGLOBIN 7.9 g/dL (13.5-17.5); LYMPHOCYTES # (AUTO) 0.8 K/uL (1.0-4.8); LYMPHOCYTES % (AUTO) 7.3 % (22.0-44.0); MEAN CORPUSCULAR HEMOGLOBIN 28.4 pg (26.0-34.0); MEAN CORPUSCULAR HGB CONC 31.9 G/dL (31.0-37.0); MEAN CORPUSCULAR VOLUME 89 fL (80-100); MONOCYTES # (AUTO) 0.5 K/uL (0.1-1.0); MONOCYTES % (AUTO) 4.2 % (2.0-9.0); NEUTROPHILS # (AUTO) 9.8 K/uL (1.8-7.7); PLATELET COUNT (AUTO) 343 K/uL (150-450); RED BLOOD CELL COUNT(AUTO) 2.79 MIL/uL (4.50-5.90); RED CELL DISTRIBUTION WIDTH 18.6 % (11.5-14.5); WHITE BLOOD COUNT (AUTO) 11.4 K/uL (4.5-11.0)
[2016-09-10 07:37] LABS: NEUTROPHILS % (AUTO) 85.7 % (40.0-70.0)
[2016-09-10 07:54] LABS: CALCIUM, TOTAL 8.8 mg/dL (8.8-10.5); CREATININE 5.37 mg/dL (0.60-1.30)
[2016-09-10] MEDS: INSULIN DETEMIR 100 UNITS/ML SQ SCH (08:53)
[2016-09-10] MEDS: TICAGRELOR 90 MG TABLET PO SCH ×2 (08:54→20:41)
[2016-09-10] MEDS: OxyCODONE HCL/ACETAMINOPHEN 5-325 MG TABLET PO PRN ×2 (08:54→13:23)
[2016-09-10] MEDS: DOCUSATE SODIUM 100 MG CAPSULE PO SCH ×2 (08:54→20:41)
[2016-09-10] MEDS: METOPROLOL TARTRATE 25 MG TABLET PO SCH ×2 (08:55→20:41)
[2016-09-10] MEDS: VITAMIN B COMP/VIT C/FOLIC ACID CAPSULE PO SCH (08:55)
[2016-09-10] MEDS: ASPIRIN 81 MG EC TABLET PO SCH (08:55)
[2016-09-10] MEDS: OXYGEN THERAPY IH SCH ×2 (09:06→20:41)
[2016-09-10] MEDS: PANTOPRAZOLE SODIUM 40 MG/VIAL IVP SCH (09:06)
[2016-09-10] MEDS: INSULIN ASPART 100 UNITS/ML SQ PRN (12:03)
[2016-09-10 12:28] VITALS: BP 157/70
[2016-09-10 15:57] VITALS: BP 186/75
[2016-09-10 17:36] LABS: GLUCOSE COMMENT 1 Received Meds; GLUCOSE,POINT OF CARE 152 MG/DL (70-110)
[2016-09-10] MEDS: AMINO ACIDS/PROTEIN HYDROLYS 30 ML TUBE PO SCH (18:00)
[2016-09-10 19:49] VITALS: BP 130/53
[2016-09-10] MEDS: ATORVASTATIN CALCIUM 40 MG TABLET PO SCH (20:41)
[2016-09-10 23:47] VITALS: BP 145/63
[2016-09-11] MEDS: OxyCODONE HCL/ACETAMINOPHEN 5-325 MG TABLET PO PRN ×2 (01:30→23:04)
[2016-09-11 04:15] VITALS: BP 148/62
[2016-09-11] MEDS: DEXTRAN 70 0.1%/HYPROMELL 0.3% 0.9 ML OPHTHALMIC SOLUTION [PF] OU SCH ×3 (05:23→18:17)
[2016-09-11 06:25] LABS: BASOPHILS # (AUTO) 0.08 K/uL (0.00-0.20); BASOPHILS % (AUTO) 0.6 % (0.0-2.0); EOSINOPHILS # (AUTO) 0.14 K/uL (0.00-0.70); EOSINOPHILS % (AUTO) 0.98 % (1.0-6.0); HEMATOCRIT 23.4 % (41-53); HEMOGLOBIN 7.6 g/dL (13.5-17.5); LYMPHOCYTES # (AUTO) 0.8 K/uL (1.0-4.8); LYMPHOCYTES % (AUTO) 5.4 % (22.0-44.0); MEAN CORPUSCULAR HEMOGLOBIN 28.7 pg (26.0-34.0); MEAN CORPUSCULAR HGB CONC 32.6 G/dL (31.0-37.0); MEAN CORPUSCULAR VOLUME 88 fL (80-100); MONOCYTES # (AUTO) 0.4 K/uL (0.1-1.0); PLATELET COUNT (AUTO) 357 K/uL (150-450); RED BLOOD CELL COUNT(AUTO) 2.66 MIL/uL (4.50-5.90); RED CELL DISTRIBUTION WIDTH 18.8 % (11.5-14.5); WHITE BLOOD COUNT (AUTO) 14.4 K/uL (4.5-11.0)
[2016-09-11 06:50] LABS: CALCIUM, TOTAL 9.2 mg/dL (8.8-10.5); CREATININE 7.06 mg/dL (0.60-1.30); MAGNESIUM 2.1 mg/dL (1.80-2.40); PHOSPHORUS 6.1 mg/dL (2.5-4.9); POTASSIUM 5.8 mmol/L (3.5-5.1)
[2016-09-11 07:26] VITALS: BP 136/101
[2016-09-11] MEDS: METOPROLOL TARTRATE 25 MG TABLET PO SCH ×2 (08:40→21:00)
[2016-09-11] MEDS: NITROGLYCERIN 2% (1 GM=INCH) PACKET TP SCH ×2 (08:40→15:51)
[2016-09-11] MEDS: ASPIRIN 81 MG EC TABLET PO SCH (08:40)
[2016-09-11] MEDS: TICAGRELOR 90 MG TABLET PO SCH ×2 (08:40→20:55)
[2016-09-11] MEDS: DOCUSATE SODIUM 100 MG CAPSULE PO SCH ×2 (08:40→20:54)
[2016-09-11] MEDS: VITAMIN B COMP/VIT C/FOLIC ACID CAPSULE PO SCH (08:40)
[2016-09-11] MEDS: PANTOPRAZOLE SODIUM 40 MG/VIAL IVP SCH (08:40)
[2016-09-11] MEDS: OXYGEN THERAPY IH SCH ×2 (08:42→20:29)
[2016-09-11] MEDS: INSULIN DETEMIR 100 UNITS/ML SQ SCH (08:43)
[2016-09-11] MEDS: AMINO ACIDS/PROTEIN HYDROLYS 30 ML TUBE PO SCH ×2 (10:03→18:00)
[2016-09-11 10:25] LABS: RBC MORPHOLOGY COMMENT ABNORMAL RBC MORPH
[2016-09-11 11:03] VITALS: BP 165/78
[2016-09-11] MEDS: INSULIN ASPART 100 UNITS/ML SQ PRN (12:05)
[2016-09-11 15:02] VITALS: BP 149/82
[2016-09-11 19:18] VITALS: BP 117/64
[2016-09-11 20:06] LABS: GLUCOSE COMMENT 1 Received Meds; GLUCOSE,POINT OF CARE 153 MG/DL (70-110)
[2016-09-11 20:07] LABS: GLUCOSE,POINT OF CARE 91 MG/DL (70-110)
[2016-09-11 20:07] LABS: GLUCOSE COMMENT 1 Received Meds; GLUCOSE,POINT OF CARE 153 MG/DL (70-110)
[2016-09-11 20:07] LABS: GLUCOSE COMMENT 1 Received Meds; GLUCOSE,POINT OF CARE 169 MG/DL (70-110)
[2016-09-11 20:07] LABS: GLUCOSE,POINT OF CARE 124 MG/DL (70-110)
[2016-09-11 20:07] LABS: GLUCOSE,POINT OF CARE 130 MG/DL (70-110)
[2016-09-11] MEDS: ATORVASTATIN CALCIUM 40 MG TABLET PO SCH (20:29)
[2016-09-11 20:34] VITALS: BP 113/51
[2016-09-11 21:09] LABS: MONOCYTES # (AUTO) 0.6 K/uL (0.1-1.0)
[2016-09-11 21:28] LABS: BASOPHILS % (AUTO) 0.5 % (0.0-2.0); EOSINOPHILS % (AUTO) 1.8 % (1.0-6.0); LYMPHOCYTES # (AUTO) 0.9 K/uL (1.0-4.8); MEAN CORPUSCULAR HEMOGLOBIN 27.9 pg (26.0-34.0); MEAN CORPUSCULAR HGB CONC 31.5 G/dL (31.0-37.0); MEAN CORPUSCULAR VOLUME 89 fL (80-100); MONOCYTES % (AUTO) 4.6 % (2.0-9.0); PLATELET COUNT (AUTO) 331 K/uL (150-450); RED BLOOD CELL COUNT(AUTO) 2.14 MIL/uL (4.50-5.90); RED CELL DISTRIBUTION WIDTH 18.4 % (11.5-14.5); WHITE BLOOD COUNT (AUTO) 12.8 K/uL (4.5-11.0)
[2016-09-11 22:30] LABS: NEUTROPHILS % (AUTO) 86.1 % (40.0-70.0)
[2016-09-11 22:55] LABS: RBC MORPHOLOGY COMMENT ABNORMAL RBC MORPH
[2016-09-12] VITALS (20 sets, daily range): BP systolic 74–141; BP diastolic 30–117
[2016-09-12] MEDS ORDERED: SODIUM CHLORIDE 0.9% 250 ML IV ONE
[2016-09-12] MEDS: DEXTRAN 70 0.1%/HYPROMELL 0.3% 0.9 ML OPHTHALMIC SOLUTION [PF] OU SCH ×4 (00:11→17:55)
[2016-09-12] MEDS ORDERED: PROPOFOL 1% 20 ML VIAL IVP ONE (05:00)
[2016-09-12] MEDS ORDERED: EPHEDrine SULFATE 50 MG/ML VIAL IM ONE (05:00)
[2016-09-12] MEDS ORDERED: 0.9% SODIUM CHLORIDE 10 ML VIAL IVP ONE (05:00)
[2016-09-12 07:22] LABS: BASOPHILS % (AUTO) 0.1 % (0.0-2.0); EOSINOPHILS % (AUTO) 2.7 % (1.0-6.0); LYMPHOCYTES # (AUTO) 1.5 K/uL (1.0-4.8); MEAN CORPUSCULAR HEMOGLOBIN 28.1 pg (26.0-34.0); MEAN CORPUSCULAR HGB CONC 31.9 G/dL (31.0-37.0); MEAN CORPUSCULAR VOLUME 88 fL (80-100); MONOCYTES # (AUTO) 0.6 K/uL (0.1-1.0); MONOCYTES % (AUTO) 4.9 % (2.0-9.0); NEUTROPHILS % (AUTO) 80.3 % (40.0-70.0); PLATELET COUNT (AUTO) 317 K/uL (150-450); RED BLOOD CELL COUNT(AUTO) 2.19 MIL/uL (4.50-5.90); RED CELL DISTRIBUTION WIDTH 17.3 % (11.5-14.5); WHITE BLOOD COUNT (AUTO) 12.4 K/uL (4.5-11.0)
[2016-09-12 07:29] LABS: HEMOGLOBIN 6.2 g/dL (13.5-17.5)
[2016-09-12 07:30] LABS: HEMATOCRIT 19.3 % (41-53); RBC MORPHOLOGY COMMENT ABNORMAL RBC MORPH
[2016-09-12 07:46] LABS: ALBUMIN 1.6 g/dL (3.4-5.0); ANION GAP 13 mmol/L (8-16); ASPARTATE AMINOTRANSFERASE 15 U/L (15-37); BILIRUBIN,TOTAL 0.3 mg/dL (0.1-1.0); CALCIUM, TOTAL 8.7 mg/dL (8.8-10.5); CARBON DIOXIDE 22 mmol/L (22-29); CHLORIDE 102 mmol/L (98-107); CREATININE 8.03 mg/dL (0.60-1.30); GLOMERULAR FILTR. RATE CALC 7 mL/min (>60); PHOSPHORUS 6.6 mg/dL (2.5-4.9); SODIUM SERUM 137 mmol/L (136-145); TOTAL PROTEIN, SERUM 6.4 g/dL (6.4-8.2); UREA NITROGEN, BLOOD 55 mg/dL (7-18)
[2016-09-12 07:58] LABS: POTASSIUM 6.5 mmol/L (3.5-5.1)
[2016-09-12 07:59] LABS: ALANINE AMINOTRANSFERASE < 6 U/L (12-78)
[2016-09-12] MEDS: NITROGLYCERIN 2% (1 GM=INCH) PACKET TP SCH ×3 (08:00→15:29)
[2016-09-12] MEDS ORDERED: HEPARIN SODIUM,PORCINE 1,000 UNITS/ML VIAL IVP ONE ×5 (08:15→16:54)
[2016-09-12] MEDS ORDERED: MANNITOL 25%-12.5 GM/50 ML VIAL IVP PRN ×2 (08:15→09:30)
[2016-09-12] MEDS ORDERED: DiphenhydrAMINE HCL 50 MG/ML VIAL IVP PRN ×3 (08:15→09:30)
[2016-09-12] MEDS: TICAGRELOR 90 MG TABLET PO SCH (09:00)
[2016-09-12] MEDS: METOPROLOL TARTRATE 25 MG TABLET PO SCH ×2 (09:00→21:00)
[2016-09-12] MEDS ORDERED: SODIUM CHLORIDE 0.9% 500 ML IV ONE ×3 (10:39→16:14)
[2016-09-12] MEDS ORDERED: SODIUM CHLORIDE 0.9% 1,000 ML IV ONE ×2 (12:09→12:15)
[2016-09-12] MEDS: PANTOPRAZOLE SODIUM 40 MG/VIAL IVP SCH (15:57)
[2016-09-12] MEDS: CeFAZolin 2 GM/DEXTROSE 50 ML IV SCH (15:58)
[2016-09-12] MEDS: VITAMIN B COMP/VIT C/FOLIC ACID CAPSULE PO SCH (15:58)
[2016-09-12] MEDS: DOCUSATE SODIUM 100 MG CAPSULE PO SCH ×2 (15:58→20:02)
[2016-09-12] MEDS: EPOETIN ALFA 10,000 UNITS/ML 2 ML VIAL SQ SCH (15:59)
[2016-09-12] MEDS: INSULIN DETEMIR 100 UNITS/ML SQ SCH (16:01)
[2016-09-12] MEDS: OXYGEN THERAPY IH SCH ×2 (16:02→20:02)
[2016-09-12] MEDS ORDERED: DiphenhydrAMINE HCL 50 MG/ML VIAL IM ONE (16:54)
[2016-09-12] MEDS: AMINO ACIDS/PROTEIN HYDROLYS 30 ML TUBE PO SCH (17:55)
[2016-09-12] MEDS: SEVELAMER CARBONATE 800 MG TABLET PO SCH (17:56)
[2016-09-12 19:56] LABS: GLUCOSE,POINT OF CARE 108 MG/DL (70-110)
[2016-09-12 19:56] LABS: GLUCOSE COMMENT 1 Received Meds; GLUCOSE,POINT OF CARE 111 MG/DL (70-110)
[2016-09-12] MEDS: ATORVASTATIN CALCIUM 40 MG TABLET PO SCH (20:02)
[2016-09-12] MEDS: ACETAMINOPHEN 325 MG TABLET PO PRN (20:03)
[2016-09-13 03:14] VITALS: BP 115/50
[2016-09-13] MEDS: ACETAMINOPHEN 325 MG TABLET PO PRN ×2 (03:20→09:08)
[2016-09-13] MEDS: DEXTRAN 70 0.1%/HYPROMELL 0.3% 0.9 ML OPHTHALMIC SOLUTION [PF] OU SCH ×5 (06:29→23:00)
[2016-09-13 07:05] LABS: GLUCOSE,POINT OF CARE 83 MG/DL (70-110)
[2016-09-13 07:22] VITALS: BP 106/64
[2016-09-13 07:51] LABS: BASOPHILS % (AUTO) 0.6 % (0.0-2.0); EOSINOPHILS % (AUTO) 4.3 % (1.0-6.0); HEMATOCRIT 22.9 % (41-53); HEMOGLOBIN 7.4 g/dL (13.5-17.5); LYMPHOCYTES # (AUTO) 1.1 K/uL (1.0-4.8); LYMPHOCYTES % (AUTO) 10.9 % (22.0-44.0); MEAN CORPUSCULAR HEMOGLOBIN 28.7 pg (26.0-34.0); MEAN CORPUSCULAR HGB CONC 32.1 G/dL (31.0-37.0); MEAN CORPUSCULAR VOLUME 89 fL (80-100); MONOCYTES # (AUTO) 0.6 K/uL (0.1-1.0); MONOCYTES % (AUTO) 6.7 % (2.0-9.0); NEUTROPHILS # (AUTO) 7.5 K/uL (1.8-7.7); NEUTROPHILS % (AUTO) 77.5 % (40.0-70.0); PLATELET COUNT (AUTO) 285 K/uL (150-450); RED BLOOD CELL COUNT(AUTO) 2.57 MIL/uL (4.50-5.90); WHITE BLOOD COUNT (AUTO) 9.6 K/uL (4.5-11.0)
[2016-09-13] MEDS: NITROGLYCERIN 2% (1 GM=INCH) PACKET TP SCH ×4 (08:00→23:28)
[2016-09-13 08:08] LABS: ALBUMIN 1.7 g/dL (3.4-5.0); ANION GAP 12 mmol/L (8-16); ASPARTATE AMINOTRANSFERASE 19 U/L (15-37); BILIRUBIN,TOTAL 0.3 mg/dL (0.1-1.0); CALCIUM, TOTAL 8.7 mg/dL (8.8-10.5); CARBON DIOXIDE 23 mmol/L (22-29); CHLORIDE 99 mmol/L (98-107); CREATININE 5.68 mg/dL (0.60-1.30); GLOMERULAR FILTR. RATE CALC 10 mL/min (>60); SODIUM SERUM 134 mmol/L (136-145); TOTAL PROTEIN, SERUM 6.8 g/dL (6.4-8.2); UREA NITROGEN, BLOOD 34 mg/dL (7-18)
[2016-09-13 08:31] LABS: ALANINE AMINOTRANSFERASE < 6 U/L (12-78)
[2016-09-13] MEDS: METOPROLOL TARTRATE 25 MG TABLET PO SCH ×2 (09:00→20:29)
[2016-09-13] MEDS: VITAMIN B COMP/VIT C/FOLIC ACID CAPSULE PO SCH (09:07)
[2016-09-13] MEDS: DOCUSATE SODIUM 100 MG CAPSULE PO SCH ×2 (09:07→20:29)
[2016-09-13] MEDS: SEVELAMER CARBONATE 800 MG TABLET PO SCH ×3 (09:07→18:00)
[2016-09-13] MEDS: PANTOPRAZOLE SODIUM 40 MG/VIAL IVP SCH (09:08)
[2016-09-13] MEDS: OXYGEN THERAPY IH SCH ×2 (09:09→20:29)
[2016-09-13] MEDS: INSULIN DETEMIR 100 UNITS/ML SQ SCH (09:34)
[2016-09-13 11:27] VITALS: BP 128/78
[2016-09-13 12:11] LABS: GLUCOSE,POINT OF CARE 87 MG/DL (70-110)
[2016-09-13 15:39] VITALS: BP 164/78
[2016-09-13] MEDS: OxyCODONE HCL/ACETAMINOPHEN 5-325 MG TABLET PO PRN ×2 (15:40→22:54)
[2016-09-13] MEDS: AMINO ACIDS/PROTEIN HYDROLYS 30 ML TUBE PO SCH (18:00)
[2016-09-13 20:15] VITALS: BP 115/65
[2016-09-13] MEDS: ATORVASTATIN CALCIUM 40 MG TABLET PO SCH (20:29)
[2016-09-13 23:06] VITALS: BP 110/80
[2016-09-14] VITALS (13 sets, daily range): BP systolic 95–139; BP diastolic 39–87
[2016-09-14] MEDS: ACETAMINOPHEN 325 MG TABLET PO PRN (01:40)
[2016-09-14] MEDS: DEXTRAN 70 0.1%/HYPROMELL 0.3% 0.9 ML OPHTHALMIC SOLUTION [PF] OU SCH ×3 (05:55→17:31)
[2016-09-14] MEDS: AMINO ACIDS/PROTEIN HYDROLYS 30 ML TUBE PO SCH ×2 (08:00→17:19)
[2016-09-14] MEDS: NITROGLYCERIN 2% (1 GM=INCH) PACKET TP SCH ×2 (08:00→17:31)
[2016-09-14] MEDS: SEVELAMER CARBONATE 800 MG TABLET PO SCH ×3 (08:38→17:31)
[2016-09-14] MEDS: VITAMIN B COMP/VIT C/FOLIC ACID CAPSULE PO SCH (08:39)
[2016-09-14] MEDS: DOCUSATE SODIUM 100 MG CAPSULE PO SCH ×2 (08:39→20:52)
[2016-09-14] MEDS: EPOETIN ALFA 10,000 UNITS/ML 2 ML VIAL SQ SCH (08:40)
[2016-09-14] MEDS: INSULIN DETEMIR 100 UNITS/ML SQ SCH (08:43)
[2016-09-14] MEDS: METOPROLOL TARTRATE 25 MG TABLET PO SCH ×2 (09:00→20:51)
[2016-09-14] MEDS: OXYGEN THERAPY IH SCH ×2 (09:13→20:27)
[2016-09-14] MEDS ORDERED: MANNITOL 25%-12.5 GM/50 ML VIAL IVP PRN (11:00)
[2016-09-14] MEDS ORDERED: HEPARIN SODIUM,PORCINE 1,000 UNITS/ML VIAL IVP ONE ×3 (11:00→12:00)
[2016-09-14] MEDS ORDERED: ALBUMIN HUMAN 25%-12.5GM/50ML IV BOTTLE IV PRN (11:00)
[2016-09-14] MEDS ORDERED: DiphenhydrAMINE HCL 50 MG/ML VIAL IVP ONE (12:00)
[2016-09-14] MEDS: CeFAZolin 2 GM/DEXTROSE 50 ML IV SCH (13:36)
[2016-09-14] MEDS: PANTOPRAZOLE SODIUM 40 MG/VIAL IVP SCH (13:36)
[2016-09-14] MEDS: OxyCODONE HCL/ACETAMINOPHEN 5-325 MG TABLET PO PRN ×2 (18:57→23:11)
[2016-09-14] MEDS: ATORVASTATIN CALCIUM 40 MG TABLET PO SCH (20:52)
[2016-09-15] VITALS (13 sets, daily range): BP systolic 108–147; BP diastolic 52–84
[2016-09-15] MEDS: DEXTRAN 70 0.1%/HYPROMELL 0.3% 0.9 ML OPHTHALMIC SOLUTION [PF] OU SCH ×4 (00:31→18:20)
[2016-09-15] MEDS: NITROGLYCERIN 2% (1 GM=INCH) PACKET TP SCH ×3 (00:34→17:07)
[2016-09-15] MEDS ORDERED: SODIUM CHLORIDE 0.9% 500 ML IV ONE ×2 (05:54→12:27)
[2016-09-15 07:06] LABS: BASOPHILS # (AUTO) 0.07 K/uL (0.00-0.20); BASOPHILS % (AUTO) 0.8 % (0.0-2.0); EOSINOPHILS # (AUTO) 0.43 K/uL (0.00-0.70); EOSINOPHILS % (AUTO) 4.71 % (1.0-6.0); LYMPHOCYTES % (AUTO) 10.6 % (22.0-44.0); MEAN CORPUSCULAR HEMOGLOBIN 29.4 pg (26.0-34.0); MEAN CORPUSCULAR HGB CONC 32.9 G/dL (31.0-37.0); MEAN CORPUSCULAR VOLUME 89 fL (80-100); MONOCYTES # (AUTO) 0.7 K/uL (0.1-1.0); NEUTROPHILS # (AUTO) 6.9 K/uL (1.8-7.7); PLATELET COUNT (AUTO) 239 K/uL (150-450); RED BLOOD CELL COUNT(AUTO) 2.35 MIL/uL (4.50-5.90); RED CELL DISTRIBUTION WIDTH 16.8 % (11.5-14.5); WHITE BLOOD COUNT (AUTO) 9.1 K/uL (4.5-11.0)
[2016-09-15 07:18] LABS: ALBUMIN 1.6 g/dL (3.4-5.0); ANION GAP 10 mmol/L (8-16); ASPARTATE AMINOTRANSFERASE 14 U/L (15-37); BILIRUBIN,TOTAL 0.2 mg/dL (0.1-1.0); CALCIUM, TOTAL 8.6 mg/dL (8.8-10.5); CARBON DIOXIDE 24 mmol/L (22-29); CHLORIDE 98 mmol/L (98-107); CREATININE 5.25 mg/dL (0.60-1.30); GLOMERULAR FILTR. RATE CALC 11 mL/min (>60); POTASSIUM 4.7 mmol/L (3.5-5.1); SODIUM SERUM 132 mmol/L (136-145); TOTAL PROTEIN, SERUM 6.9 g/dL (6.4-8.2); UREA NITROGEN, BLOOD 33 mg/dL (7-18)
[2016-09-15 07:21] LABS: HEMOGLOBIN 6.9 g/dL (13.5-17.5)
[2016-09-15 07:30] LABS: ALANINE AMINOTRANSFERASE < 6 U/L (12-78)
[2016-09-15] MEDS: AMINO ACIDS/PROTEIN HYDROLYS 30 ML TUBE PO SCH ×2 (08:00→18:00)
[2016-09-15] MEDS: SEVELAMER CARBONATE 800 MG TABLET PO SCH ×3 (08:00→18:20)
[2016-09-15] MEDS: METOPROLOL TARTRATE 25 MG TABLET PO SCH ×3 (09:00→21:00)
[2016-09-15] MEDS: INSULIN DETEMIR 100 UNITS/ML SQ SCH (09:00)
[2016-09-15] MEDS: DOCUSATE SODIUM 100 MG CAPSULE PO SCH ×2 (09:48→21:00)
[2016-09-15] MEDS: OXYGEN THERAPY IH SCH ×2 (09:48→20:09)
[2016-09-15] MEDS: VITAMIN B COMP/VIT C/FOLIC ACID CAPSULE PO SCH (09:49)
[2016-09-15] MEDS: PANTOPRAZOLE SODIUM 40 MG/VIAL IVP SCH (09:49)
[2016-09-15] MEDS: OxyCODONE HCL/ACETAMINOPHEN 5-325 MG TABLET PO PRN ×2 (10:18→22:34)
[2016-09-15 12:28] LABS: GLUCOSE,POINT OF CARE 120 MG/DL (70-110)
[2016-09-15 12:28] LABS: GLUCOSE,POINT OF CARE 93 MG/DL (70-110)
[2016-09-15] MEDS ORDERED: SODIUM CHLORIDE 0.9% 2,000 ML IV ONE (14:58)
[2016-09-15] MEDS ORDERED: SODIUM CHLORIDE 0.9% 1,000 ML IV ONE ×2 (14:59)
[2016-09-15] MEDS ORDERED: PEG 3350/NA SULF,BICARB,CL/KCL 4000 ML SOLUTION PO ONE (19:30)
[2016-09-15 19:58] LABS: BASOPHILS % (AUTO) 0.3 % (0.0-2.0); EOSINOPHILS % (AUTO) 4.5 % (1.0-6.0); HEMATOCRIT 23.7 % (41-53); HEMOGLOBIN 7.6 g/dL (13.5-17.5); LYMPHOCYTES % (AUTO) 10.7 % (22.0-44.0); MEAN CORPUSCULAR HEMOGLOBIN 29.2 pg (26.0-34.0); MEAN CORPUSCULAR HGB CONC 32.1 G/dL (31.0-37.0); MEAN CORPUSCULAR VOLUME 91 fL (80-100); MONOCYTES # (AUTO) 0.9 K/uL (0.1-1.0); MONOCYTES % (AUTO) 9.2 % (2.0-9.0); NEUTROPHILS # (AUTO) 7.3 K/uL (1.8-7.7); NEUTROPHILS % (AUTO) 75.3 % (40.0-70.0); PLATELET COUNT (AUTO) 235 K/uL (150-450); RED CELL DISTRIBUTION WIDTH 15.6 % (11.5-14.5); WHITE BLOOD COUNT (AUTO) 9.8 K/uL (4.5-11.0)
[2016-09-15] MEDS: ATORVASTATIN CALCIUM 40 MG TABLET PO SCH (21:00)
[2016-09-15] MEDS: LORazepam 2 MG/ML VIAL IVP PRN (23:00)
[2016-09-15] MEDS ORDERED: LORazepam 2 MG/ML VIAL IM ONE (23:30)
[2016-09-16] VITALS (11 sets, daily range): BP systolic 116–162; BP diastolic 54–89
[2016-09-16] MEDS: NITROGLYCERIN 2% (1 GM=INCH) PACKET TP SCH ×3 (03:00→15:36)
[2016-09-16] MEDS: LORazepam 2 MG/ML VIAL IVP PRN ×3 (03:14→22:39)
[2016-09-16 05:34] LABS: BASOPHILS # (AUTO) 0.02 K/uL (0.00-0.20); BASOPHILS % (AUTO) 0.2 % (0.0-2.0); EOSINOPHILS # (AUTO) 0.43 K/uL (0.00-0.70); EOSINOPHILS % (AUTO) 4.46 % (1.0-6.0); LYMPHOCYTES % (AUTO) 10.2 % (22.0-44.0); MEAN CORPUSCULAR HGB CONC 33.8 G/dL (31.0-37.0); MEAN CORPUSCULAR VOLUME 89 fL (80-100); MONOCYTES # (AUTO) 0.8 K/uL (0.1-1.0); MONOCYTES % (AUTO) 8.5 % (2.0-9.0); NEUTROPHILS # (AUTO) 7.5 K/uL (1.8-7.7); NEUTROPHILS % (AUTO) 76.6 % (40.0-70.0); PLATELET COUNT (AUTO) 220 K/uL (150-450); RED BLOOD CELL COUNT(AUTO) 2.33 MIL/uL (4.50-5.90); RED CELL DISTRIBUTION WIDTH 16.2 % (11.5-14.5); WHITE BLOOD COUNT (AUTO) 9.7 K/uL (4.5-11.0)
[2016-09-16 05:40] LABS: INR 1.2 (0.9-1.1); PROTHROMBIN TIME 12.2 SEC (9.4-11.6)
[2016-09-16 05:50] LABS: CALCIUM, TOTAL 8.9 mg/dL (8.8-10.5); CREATININE 6.43 mg/dL (0.60-1.30); PHOSPHORUS 5.5 mg/dL (2.5-4.9); POTASSIUM 5.5 mmol/L (3.5-5.1)
[2016-09-16] MEDS ORDERED: MIDAZOLAM HCL 5 MG/ML VIAL ONE (07:22)
[2016-09-16] MEDS ORDERED: FentaNYL CITRATE-PF 100 MCG/2 ML VIAL ONE (07:22)
[2016-09-16 07:24] LABS: HEMATOCRIT 20.7 % (41-53)
[2016-09-16] MEDS ORDERED: PEG 3350/NA SULF,BICARB,CL/KCL 4000 ML SOLUTION PO ONE (08:45)
[2016-09-16] MEDS: AMINO ACIDS/PROTEIN HYDROLYS 30 ML TUBE PO SCH ×2 (09:00→17:50)
[2016-09-16] MEDS: VITAMIN B COMP/VIT C/FOLIC ACID CAPSULE PO SCH (09:00)
[2016-09-16] MEDS: DEXTRAN 70 0.1%/HYPROMELL 0.3% 0.9 ML OPHTHALMIC SOLUTION [PF] OU SCH ×3 (09:00→17:51)
[2016-09-16] MEDS: METOPROLOL TARTRATE 25 MG TABLET PO SCH ×2 (09:00→22:16)
[2016-09-16] MEDS: DOCUSATE SODIUM 100 MG CAPSULE PO SCH ×2 (09:00→21:00)
[2016-09-16] MEDS: SEVELAMER CARBONATE 800 MG TABLET PO SCH ×3 (09:00→17:51)
[2016-09-16] MEDS: EPOETIN ALFA 10,000 UNITS/ML 2 ML VIAL SQ SCH (09:37)
[2016-09-16] MEDS: PANTOPRAZOLE SODIUM 40 MG/VIAL IVP SCH (09:38)
[2016-09-16] MEDS: HALOPERIDOL LACTATE 5 MG/ML VIAL IM PRN (09:38)
[2016-09-16] MEDS: INSULIN DETEMIR 100 UNITS/ML SQ SCH (09:41)
[2016-09-16] MEDS: OXYGEN THERAPY IH SCH (09:42)
[2016-09-16] MEDS ORDERED: DiphenhydrAMINE HCL 50 MG/ML VIAL IVP SCH (09:45)
[2016-09-16] MEDS: CeFAZolin 2 GM/DEXTROSE 50 ML IV SCH (10:43)
[2016-09-16] MEDS ORDERED: SODIUM CHLORIDE 0.9% 250 ML IV ONE (10:47)
[2016-09-16 12:17] LABS: GLUCOSE,POINT OF CARE 140 MG/DL (70-110)
[2016-09-16 12:22] LABS: GLUCOSE,POINT OF CARE 151 MG/DL (70-110)
[2016-09-16] MEDS ORDERED: SODIUM CHLORIDE 0.9% 2,000 ML IV ONE (13:19)
[2016-09-16] MEDS ORDERED: HEPARIN SODIUM,PORCINE 1,000 UNITS/ML VIAL IVP ONE ×3 (13:30→17:50)
[2016-09-16] MEDS ORDERED: DiphenhydrAMINE HCL 50 MG/ML VIAL IVP PRN (13:30)
[2016-09-16] MEDS ORDERED: ALBUMIN HUMAN 25%-12.5GM/50ML IV BOTTLE IV PRN (13:30)
[2016-09-16] MEDS ORDERED: MANNITOL 25%-12.5 GM/50 ML VIAL IVP PRN (13:30)
[2016-09-16] MEDS: OxyCODONE HCL/ACETAMINOPHEN 5-325 MG TABLET PO PRN (19:21)
[2016-09-16 21:13] LABS: BASOPHILS % (AUTO) 0.3 % (0.0-2.0); EOSINOPHILS % (AUTO) 4.1 % (1.0-6.0); HEMATOCRIT 26.7 % (41-53); HEMOGLOBIN 8.6 g/dL (13.5-17.5); LYMPHOCYTES # (AUTO) 0.9 K/uL (1.0-4.8); LYMPHOCYTES % (AUTO) 8.8 % (22.0-44.0); MEAN CORPUSCULAR HEMOGLOBIN 28.9 pg (26.0-34.0); MEAN CORPUSCULAR HGB CONC 32.1 G/dL (31.0-37.0); MEAN CORPUSCULAR VOLUME 90 fL (80-100); MONOCYTES # (AUTO) 0.8 K/uL (0.1-1.0); MONOCYTES % (AUTO) 7.7 % (2.0-9.0); NEUTROPHILS # (AUTO) 8.3 K/uL (1.8-7.7); NEUTROPHILS % (AUTO) 79.1 % (40.0-70.0); PLATELET COUNT (AUTO) 198 K/uL (150-450); RED BLOOD CELL COUNT(AUTO) 2.96 MIL/uL (4.50-5.90); RED CELL DISTRIBUTION WIDTH 15.7 % (11.5-14.5); WHITE BLOOD COUNT (AUTO) 10.4 K/uL (4.5-11.0)
[2016-09-16] MEDS: ATORVASTATIN CALCIUM 40 MG TABLET PO SCH (22:17)
[2016-09-17] VITALS (7 sets, daily range): BP systolic 96–158; BP diastolic 58–107
[2016-09-17] MEDS: NITROGLYCERIN 2% (1 GM=INCH) PACKET TP SCH ×4 (01:46→23:44)
[2016-09-17] MEDS: DEXTRAN 70 0.1%/HYPROMELL 0.3% 0.9 ML OPHTHALMIC SOLUTION [PF] OU SCH ×5 (01:46→23:44)
[2016-09-17 05:56] LABS: BASOPHILS # (AUTO) 0.05 K/uL (0.00-0.20); BASOPHILS % (AUTO) 0.5 % (0.0-2.0); EOSINOPHILS # (AUTO) 0.54 K/uL (0.00-0.70); EOSINOPHILS % (AUTO) 5.47 % (1.0-6.0); HEMATOCRIT 27.5 % (41-53); LYMPHOCYTES % (AUTO) 9.7 % (22.0-44.0); MEAN CORPUSCULAR HEMOGLOBIN 29.7 pg (26.0-34.0); MEAN CORPUSCULAR HGB CONC 32.6 G/dL (31.0-37.0); MEAN CORPUSCULAR VOLUME 91 fL (80-100); MONOCYTES % (AUTO) 10.4 % (2.0-9.0); NEUTROPHILS # (AUTO) 7.3 K/uL (1.8-7.7); NEUTROPHILS % (AUTO) 73.9 % (40.0-70.0); PLATELET COUNT (AUTO) 231 K/uL (150-450); RED BLOOD CELL COUNT(AUTO) 3.03 MIL/uL (4.50-5.90); RED CELL DISTRIBUTION WIDTH 15.4 % (11.5-14.5); WHITE BLOOD COUNT (AUTO) 9.9 K/uL (4.5-11.0)
[2016-09-17 06:08] LABS: CALCIUM, TOTAL 8.9 mg/dL (8.8-10.5); CREATININE 4.95 mg/dL (0.60-1.30); MAGNESIUM 1.9 mg/dL (1.80-2.40); PHOSPHORUS 4.7 mg/dL (2.5-4.9); POTASSIUM 4.6 mmol/L (3.5-5.1)
[2016-09-17] MEDS: HALOPERIDOL LACTATE 5 MG/ML VIAL IM PRN ×2 (07:10→15:30)
[2016-09-17] MEDS: LORazepam 2 MG/ML VIAL IVP PRN ×2 (07:10→14:09)
[2016-09-17] MEDS: AMINO ACIDS/PROTEIN HYDROLYS 30 ML TUBE PO SCH ×2 (08:00→17:22)
[2016-09-17] MEDS: SEVELAMER CARBONATE 800 MG TABLET PO SCH ×3 (08:00→17:21)
[2016-09-17] MEDS: DOCUSATE SODIUM 100 MG CAPSULE PO SCH ×2 (08:03→20:35)
[2016-09-17] MEDS: PANTOPRAZOLE SODIUM 40 MG/VIAL IVP SCH (08:03)
[2016-09-17] MEDS: METOPROLOL TARTRATE 25 MG TABLET PO SCH ×2 (08:05→20:35)
[2016-09-17] MEDS: INSULIN DETEMIR 100 UNITS/ML SQ SCH (08:06)
[2016-09-17] MEDS: VITAMIN B COMP/VIT C/FOLIC ACID CAPSULE PO SCH (08:08)
[2016-09-17] MEDS ORDERED: SODIUM CHLORIDE 0.9% 500 ML IV ONE (11:10)
[2016-09-17 11:47] LABS: GLUCOSE COMMENT 1 Received Meds; GLUCOSE,POINT OF CARE 131 MG/DL (70-110)
[2016-09-17 11:47] LABS: GLUCOSE COMMENT 1 Received Meds; GLUCOSE,POINT OF CARE 163 MG/DL (70-110)
[2016-09-17] MEDS: OxyCODONE HCL/ACETAMINOPHEN 5-325 MG TABLET PO PRN (17:22)
[2016-09-17] MEDS: OXYGEN THERAPY IH SCH (20:00)
[2016-09-17] MEDS: ATORVASTATIN CALCIUM 40 MG TABLET PO SCH (20:35)
[2016-09-17 20:52] LABS: GLUCOSE,POINT OF CARE 84 MG/DL (70-110)
[2016-09-17] MEDS: MetroNIDAZOLE 500 MG TABLET PO SCH (23:44)
[2016-09-18] MEDS: OxyCODONE HCL/ACETAMINOPHEN 5-325 MG TABLET PO PRN ×3 (00:46→17:32)
[2016-09-18 04:48] VITALS: BP 139/78
[2016-09-18] MEDS: DEXTRAN 70 0.1%/HYPROMELL 0.3% 0.9 ML OPHTHALMIC SOLUTION [PF] OU SCH ×3 (06:42→17:34)
[2016-09-18 07:10] LABS: BASOPHILS # (AUTO) 0.05 K/uL (0.00-0.20); BASOPHILS % (AUTO) 0.7 % (0.0-2.0); EOSINOPHILS # (AUTO) 0.46 K/uL (0.00-0.70); HEMATOCRIT 25.4 % (41-53); HEMOGLOBIN 8.3 g/dL (13.5-17.5); LYMPHOCYTES # (AUTO) 0.9 K/uL (1.0-4.8); LYMPHOCYTES % (AUTO) 11.5 % (22.0-44.0); MEAN CORPUSCULAR HEMOGLOBIN 29.9 pg (26.0-34.0); MEAN CORPUSCULAR HGB CONC 32.9 G/dL (31.0-37.0); MEAN CORPUSCULAR VOLUME 91 fL (80-100); MONOCYTES # (AUTO) 0.8 K/uL (0.1-1.0); MONOCYTES % (AUTO) 10.1 % (2.0-9.0); NEUTROPHILS # (AUTO) 5.5 K/uL (1.8-7.7); NEUTROPHILS % (AUTO) 71.7 % (40.0-70.0); PLATELET COUNT (AUTO) 220 K/uL (150-450); RED BLOOD CELL COUNT(AUTO) 2.79 MIL/uL (4.50-5.90); RED CELL DISTRIBUTION WIDTH 16.8 % (11.5-14.5); WHITE BLOOD COUNT (AUTO) 7.7 K/uL (4.5-11.0)
[2016-09-18 07:31] LABS: CALCIUM, TOTAL 8.7 mg/dL (8.8-10.5); CREATININE 6.23 mg/dL (0.60-1.30); PHOSPHORUS 5.8 mg/dL (2.5-4.9); POTASSIUM 5.1 mmol/L (3.5-5.1)
[2016-09-18] MEDS: SEVELAMER CARBONATE 800 MG TABLET PO SCH ×3 (08:00→17:32)
[2016-09-18] MEDS: AMINO ACIDS/PROTEIN HYDROLYS 30 ML TUBE PO SCH ×2 (08:00→17:34)
[2016-09-18] MEDS: MetroNIDAZOLE 500 MG TABLET PO SCH ×2 (08:00→17:32)
[2016-09-18 08:22] VITALS: BP 125/68
[2016-09-18] MEDS: INSULIN DETEMIR 100 UNITS/ML SQ SCH (08:32)
[2016-09-18] MEDS: METOPROLOL TARTRATE 25 MG TABLET PO SCH (08:32)
[2016-09-18] MEDS: VITAMIN B COMP/VIT C/FOLIC ACID CAPSULE PO SCH (08:32)
[2016-09-18] MEDS: DOCUSATE SODIUM 100 MG CAPSULE PO SCH (08:32)
[2016-09-18] MEDS: NITROGLYCERIN 2% (1 GM=INCH) PACKET TP SCH ×2 (08:46→17:32)
[2016-09-18] MEDS: OXYGEN THERAPY IH SCH (08:46)
[2016-09-18] MEDS: PANTOPRAZOLE SODIUM 40 MG/VIAL IVP SCH (08:48)
[2016-09-18] MEDS ORDERED: FentaNYL CITRATE-PF 100 MCG/2 ML VIAL ONE ×2 (09:22→12:42)
[2016-09-18] MEDS ORDERED: HEPARIN SODIUM 1000 UNITS/NS 500 ML ONE (09:22)
[2016-09-18] MEDS ORDERED: MIDAZOLAM HCL 2 MG/2 ML VIAL ONE ×2 (09:22→12:42)
[2016-09-18] MEDS ORDERED: HEPARIN SODIUM,PORCINE 1,000 UNITS/ML 10 ML VIAL ONE (09:22)
[2016-09-18] MEDS ORDERED: LIDOCAINE HCL 1%/EPI 1:200,000/PF 10 ML VIAL ONE (09:22)
[2016-09-18] MEDS ORDERED: MIDAZOLAM HCL 2 MG/2 ML VIAL IVP ONE ×2 (10:06→13:00)
[2016-09-18] MEDS ORDERED: FentaNYL CITRATE-PF 100 MCG/2 ML VIAL IVP ONE ×2 (10:06→13:00)
[2016-09-18 11:09] VITALS: BP 126/85
[2016-09-18 12:41] VITALS: BP 165/66
[2016-09-18] MEDS ORDERED: BENZOCAINE 20% 50 MCG/SPRAY 57 GM ONE (12:42)
[2016-09-18 12:53] VITALS: BP 140/66
[2016-09-18] MEDS ORDERED: BENZOCAINE 20% 50 MCG/SPRAY 57 GM TP ONE (13:00)
[2016-09-18 15:26] LABS: GLUCOSE,POINT OF CARE 115 MG/DL (70-110)
[2016-09-18 16:05] VITALS: BP 112/60
[2016-09-18 17:33] LABS: GLUCOSE,POINT OF CARE 89 MG/DL (70-110)
[2016-09-18 17:33] LABS: GLUCOSE COMMENT 1 Juice/Food/D50 Given; GLUCOSE,POINT OF CARE 69 MG/DL (70-110)
[2016-09-18] MEDS: INSULIN ASPART 100 UNITS/ML SQ PRN (17:33)
[2016-09-18] MEDS ORDERED: PROPOFOL 1% 20 ML VIAL IVP ONE (19:02)
[2016-09-18 19:47] LABS: GLUCOSE COMMENT 1 Received Meds; GLUCOSE,POINT OF CARE 203 MG/DL (70-110)
[2016-09-19 00:17] LABS: GLUCOSE,POINT OF CARE 146 MG/DL (70-110)
[2016-09-19 00:17] LABS: GLUCOSE,POINT OF CARE 136 MG/DL (70-110)
[2016-09-19 00:17] LABS: GLUCOSE,POINT OF CARE 84 MG/DL (70-110)
[2016-09-19 20:46] LABS: GLUCOSE,POINT OF CARE 120 MG/DL (70-110)
[2016-09-25 12:27] LABS: GLUCOSE,POINT OF CARE 91 MG/DL (70-110)
[2016-09-25 12:27] LABS: GLUCOSE,POINT OF CARE 99 MG/DL (70-110)
[2016-09-25 12:32] LABS: GLUCOSE,POINT OF CARE 126 MG/DL (70-110)
[2016-09-25 12:32] LABS: GLUCOSE,POINT OF CARE 110 MG/DL (70-110)
[2016-09-25 12:32] LABS: GLUCOSE,POINT OF CARE 89 MG/DL (70-110)
[2016-09-25 12:32] LABS: GLUCOSE,POINT OF CARE 95 MG/DL (70-110)
[2016-09-25 12:32] LABS: GLUCOSE,POINT OF CARE 97 MG/DL (70-110)
[2016-09-25 12:33] LABS: GLUCOSE,POINT OF CARE 111 MG/DL (70-110)
== END 2016-09-18 19:03 | DRG 853 ==
LOC: EMS 15:18 → 6N 22:34 → ICU 08-30 16:31 → 5N 09-01 21:00 → ICU 09-15 21:00 → 5S 09-17 18:20
PROVIDERS: ADMIT Internal Medicine; ATTEND Internal Medicine
PROC: 009U3ZX Drainage of Spinal Canal, Percutaneous Approach, Diagnostic (ICD-10-PCS; 2016-08-28)
PROC: 5A1D60Z (ICD-10-PCS; 2016-08-29)
PROC: B24BZZ4 Ultrasonography of Heart with Aorta, Transesophageal (ICD-10-PCS; 2016-09-07)
PROC: 05Q Upper Veins, Repair (ICD-10-PCS; 2016-09-07)
PROC: 03Q80ZZ Repair Left Brachial Artery, Open Approach (ICD-10-PCS; principal; 2016-09-07 11:30)
PROC: 02HV33Z Insertion of Infusion Device into Superior Vena Cava, Percutaneous Approach (ICD-10-PCS; 2016-09-08)
PROC: B518ZZA Fluoroscopy of Superior Vena Cava, Guidance (ICD-10-PCS; 2016-09-08)
PROC: 0DJ08ZZ Inspection of Upper Intestinal Tract, Via Natural or Artificial Opening Endoscopic (ICD-10-PCS; 2016-09-12)
PROC: 30233N1 Transfusion of Nonautologous Red Blood Cells into Peripheral Vein, Percutaneous Approach (ICD-10-PCS; 2016-09-12)
PROC: 0DJD8ZZ Inspection of Lower Intestinal Tract, Via Natural or Artificial Opening Endoscopic (ICD-10-PCS; 2016-09-17)
PROC: 02HV33Z Insertion of Infusion Device into Superior Vena Cava, Percutaneous Approach (ICD-10-PCS; 2016-09-18)
PROC: B518ZZA Fluoroscopy of Superior Vena Cava, Guidance (ICD-10-PCS; 2016-09-18)
PROC: B24BZZ4 Ultrasonography of Heart with Aorta, Transesophageal (ICD-10-PCS; 2016-09-18)
DX: A41.01 Sepsis due to Methicillin susceptible Staphylococcus aureus (principal); N18.6 End stage renal disease; E43 Unspecified severe protein-calorie malnutrition; J18.9 Pneumonia, unspecified organism; I21.4 Non-ST elevation (NSTEMI) myocardial infarction; E87.1 Hypo-osmolality and hyponatremia; I12.0 Hypertensive chronic kidney disease with stage 5 chronic kidney disease or end stage renal disease; K55.9 Vascular disorder of intestine, unspecified; M46.24 Osteomyelitis of vertebra, thoracic region; E11.21 Type 2 diabetes mellitus with diabetic nephropathy; E11.65 Type 2 diabetes mellitus with hyperglycemia; D63.1 Anemia in chronic kidney disease; E11.22 Type 2 diabetes mellitus with diabetic chronic kidney disease; E11.319 Type 2 diabetes mellitus with unspecified diabetic retinopathy without macular edema; E11.40 Type 2 diabetes mellitus with diabetic neuropathy, unspecified; E11.51 Type 2 diabetes mellitus with diabetic peripheral angiopathy without gangrene; E78.5 Hyperlipidemia, unspecified; H54.0 Blindness, both eyes; E87.5 Hyperkalemia; I25.5 Ischemic cardiomyopathy; I25.10 Atherosclerotic heart disease of native coronary artery without angina pectoris; J32.0 Chronic maxillary sinusitis; T39.015A Adverse effect of aspirin, initial encounter; T45.525A Adverse effect of antithrombotic drugs, initial encounter; M46.44 Discitis, unspecified, thoracic region; K29.00 Acute gastritis without bleeding; F29 Unspecified psychosis not due to a substance or known physiological condition; Z79.4 Long term (current) use of insulin; Z89.512 Acquired absence of left leg below knee; Z91.19 Patient's noncompliance with other medical treatment and regimen; Z95.5 Presence of coronary angioplasty implant and graft; Z99.2 Dependence on renal dialysis; Z88.1 Allergy status to other antibiotic agents; Z88.8 Allergy status to other drugs, medicaments and biological substances; Z79.899 Other long term (current) drug therapy; Z79.82 Long term (current) use of aspirin; Z87.01 Personal history of pneumonia (recurrent); Z87.891 Personal history of nicotine dependence; Z68.28 Body mass index [BMI] 28.0-28.9, adult; X58.XXXA Exposure to other specified factors, initial encounter; Y92.89 Other specified places as the place of occurrence of the external cause; Y93.89 Activity, other specified; Y99.8 Other external cause status
CPT/HCPCS: 36245; 36556; 36561; 62270; 70450; 72128; 72131; 72146; 72148; 72170; 73721; 74177; 78806; 82728; 82945; 82962; 83540; 83550; 83605; 83735; 84100; 84157; 85018; 85651; 86140; 86738; 86850; 86900; 86901; 86920; 87040; 87070; 87081; 87147; 87205; 87340; 87804; 88304; 89051; 90935; 93005; 93306; 93308; 93312; 93990; 96374; 96375; 99285; A9547; C9113; J0690; J0885; J1170; J1200; J1630; J1644; J1885; J2060; J2150; J2250; J2310; J2405; J2704; J2765; J3010; J3370; J3490; J7030; J7040; J7050; J7060; P9016

== ENCOUNTER 2016-11-17 19:56 | Inpatient (IN) | payer MEDICARE, OTHER ==
[~2016-11-17] VITALS: Ht 180.3 cm; Wt 75.4 kg
[2016-11-17 20:47] LABS: GLUCOSE,POINT OF CARE 172 MG/DL (70-110)
[2016-11-17 21:50] LABS: BASOPHILS % (AUTO) 0.3 % (0.0-2.0); EOSINOPHILS % (AUTO) 2.2 % (1.0-6.0); HEMATOCRIT 25.6 % (41-53); HEMOGLOBIN 7.8 g/dL (13.5-17.5); LYMPHOCYTES # (AUTO) 1.1 K/uL (1.0-4.8); LYMPHOCYTES % (AUTO) 13.5 % (22.0-44.0); MEAN CORPUSCULAR HEMOGLOBIN 27.8 pg (26.0-34.0); MEAN CORPUSCULAR HGB CONC 30.4 G/dL (31.0-37.0); MEAN CORPUSCULAR VOLUME 91 fL (80-100); MONOCYTES # (AUTO) 0.7 K/uL (0.1-1.0); MONOCYTES % (AUTO) 8.6 % (2.0-9.0); NEUTROPHILS % (AUTO) 75.4 % (40.0-70.0); PLATELET COUNT (AUTO) 366 K/uL (150-450); RED CELL DISTRIBUTION WIDTH 17.8 % (11.5-14.5)
[2016-11-17 22:13] LABS: ALBUMIN 2.7 g/dL (3.4-5.0); ANION GAP 3 mmol/L (8-16); ASPARTATE AMINOTRANSFERASE 16 U/L (15-37); BILIRUBIN,TOTAL 0.5 mg/dL (0.1-1.0); CALCIUM, TOTAL 9.3 mg/dL (8.8-10.5); CARBON DIOXIDE 36 mmol/L (22-29); CHLORIDE 101 mmol/L (98-107); CREATINE KINASE, TOTAL 43 U/L (39-308); CREATININE 4.58 mg/dL (0.60-1.30); GLOMERULAR FILTR. RATE CALC 13 mL/min (>60); POTASSIUM 4.1 mmol/L (3.5-5.1); SODIUM SERUM 140 mmol/L (136-145); TOTAL PROTEIN, SERUM 8.1 g/dL (6.4-8.2); UREA NITROGEN, BLOOD 21 mg/dL (7-18)
[2016-11-17 22:16] LABS: INR 1.1 (0.9-1.1); PROTHROMBIN TIME 11.8 SEC (9.4-11.6)
[2016-11-17] MEDS ORDERED: ACETAMINOPHEN 325 MG TABLET PO PRN (22:30)
[2016-11-17] MEDS ORDERED: DEXTROSE 50%-WATER 25 GM/50 ML SYRINGE IVP PRN (22:30)
[2016-11-17] MEDS ORDERED: ALBUTEROL SULFATE 2.5 MG/0.5 ML NEB SOLUTION NEB PRN (22:30)
[2016-11-17] MEDS ORDERED: ONDANSETRON HCL 4 MG/2 ML VIAL IVP PRN (22:30)
[2016-11-17] MEDS ORDERED: BISACODYL 10 MG RECTAL RECTAL SUPPOSITORY PR PRN (22:30)
[2016-11-17 22:51] LABS: ALANINE AMINOTRANSFERASE 6 U/L (12-78)
[2016-11-17 22:52] LABS: B-TYPE NATRIURETIC PEPTIDE > 5000 pg/mL (0-100)
[2016-11-17] MEDS ORDERED: FUROSEMIDE 40 MG/4 ML VIAL IVP ONE (23:30)
[2016-11-17] MEDS ORDERED: IOVERSOL 320 MG/ML 100 ML VIAL ONE (23:50)
[2016-11-17] MEDS ORDERED: SODIUM CHLORIDE 0.9% 100 ML ONE (23:50)
[2016-11-17] MEDS: OxyCODONE HCL/ACETAMINOPHEN 5-325 MG TABLET PO PRN (23:54)
[2016-11-18] VITALS (8 sets, daily range): BP systolic 87–122; BP diastolic 50–71
[2016-11-18] MEDS: INSULIN ASPART 100 UNITS/ML SQ PRN ×4 (06:32→21:49)
[2016-11-18 07:19] LABS: CALCIUM, TOTAL 8.5 mg/dL (8.8-10.5); CREATININE 4.83 mg/dL (0.60-1.30); POTASSIUM 4.3 mmol/L (3.5-5.1)
[2016-11-18] MEDS: ASPIRIN 81 MG CHEWABLE TABLET PO SCH (07:54)
[2016-11-18] MEDS: PANTOPRAZOLE SODIUM 40 MG DR TABLET PO SCH (07:54)
[2016-11-18] MEDS: TICAGRELOR 90 MG TABLET PO SCH ×2 (07:54→20:49)
[2016-11-18] MEDS: VITAMIN B COMP/VIT C/FOLIC ACID CAPSULE PO SCH (07:54)
[2016-11-18] MEDS: HEPARIN SODIUM,PORCINE 5,000 UNITS/ML VIAL SQ SCH ×3 (07:54→20:51)
[2016-11-18] MEDS: DOCUSATE SODIUM 100 MG CAPSULE PO SCH ×2 (07:55→20:50)
[2016-11-18 09:17] LABS: GLUCOSE COMMENT 1 Received Meds; GLUCOSE,POINT OF CARE 226 MG/DL (70-110)
[2016-11-18] MEDS: OxyCODONE HCL/ACETAMINOPHEN 5-325 MG TABLET PO PRN ×3 (09:19→21:49)
[2016-11-18] MEDS ORDERED: DiphenhydrAMINE HCL 25 MG CAPSULE PO PRN (10:30)
[2016-11-18] MEDS ORDERED: SODIUM CHLORIDE 0.9% 2,000 ML IV ONE (10:42)
[2016-11-18 11:36] LABS: THYROID STIMULATING HORMONE 2.86 uIU/mL (0.36-3.74)
[2016-11-18] MEDS ORDERED: ALBUMIN HUMAN 25%-12.5GM/50ML IV BOTTLE IV PRN (11:45)
[2016-11-18] MEDS ORDERED: HEPARIN SODIUM,PORCINE 1,000 UNITS/ML VIAL IVP ONE ×3 (11:45→16:11)
[2016-11-18] MEDS ORDERED: MANNITOL 25%-12.5 GM/50 ML VIAL IVP PRN (11:45)
[2016-11-18] MEDS: DiphenhydrAMINE HCL 50 MG/ML VIAL IVP PRN (14:13)
[2016-11-18] MEDS ORDERED: DiphenhydrAMINE HCL 50 MG/ML VIAL IM ONE (16:11)
[2016-11-18 18:47] LABS: GLUCOSE COMMENT 1 Received Meds; GLUCOSE,POINT OF CARE 165 MG/DL (70-110)
[2016-11-18 20:23] LABS: GLUCOSE COMMENT 1 Received Meds; GLUCOSE,POINT OF CARE 170 MG/DL (70-110)
[2016-11-18] MEDS: ATORVASTATIN CALCIUM 20 MG TABLET PO SCH (20:49)
[2016-11-19 04:22] VITALS: BP 112/59
[2016-11-19 06:59] VITALS: BP 112/59
[2016-11-19 07:26] LABS: BASOPHILS % (AUTO) 0.2 % (0.0-2.0); EOSINOPHILS % (AUTO) 4.7 % (1.0-6.0); HEMATOCRIT 24.5 % (41-53); HEMOGLOBIN 7.5 g/dL (13.5-17.5); LYMPHOCYTES # (AUTO) 1.4 K/uL (1.0-4.8); LYMPHOCYTES % (AUTO) 18.4 % (22.0-44.0); MEAN CORPUSCULAR HEMOGLOBIN 28.3 pg (26.0-34.0); MEAN CORPUSCULAR HGB CONC 30.8 G/dL (31.0-37.0); MEAN CORPUSCULAR VOLUME 92 fL (80-100); MONOCYTES # (AUTO) 0.7 K/uL (0.1-1.0); MONOCYTES % (AUTO) 9.4 % (2.0-9.0); NEUTROPHILS # (AUTO) 4.9 K/uL (1.8-7.7); NEUTROPHILS % (AUTO) 67.3 % (40.0-70.0); PLATELET COUNT (AUTO) 338 K/uL (150-450); RED BLOOD CELL COUNT(AUTO) 2.66 MIL/uL (4.50-5.90); RED CELL DISTRIBUTION WIDTH 18.6 % (11.5-14.5); WHITE BLOOD COUNT (AUTO) 7.4 K/uL (4.5-11.0)
[2016-11-19 07:39] LABS: CREATININE 4.04 mg/dL (0.60-1.30); MAGNESIUM 1.8 mg/dL (1.80-2.40); PHOSPHORUS 3.5 mg/dL (2.5-4.9); POTASSIUM 4.4 mmol/L (3.5-5.1)
[2016-11-19] MEDS: HEPARIN SODIUM,PORCINE 5,000 UNITS/ML VIAL SQ SCH ×2 (08:18→20:20)
[2016-11-19] MEDS: PANTOPRAZOLE SODIUM 40 MG DR TABLET PO SCH (08:19)
[2016-11-19] MEDS: TICAGRELOR 90 MG TABLET PO SCH ×2 (08:19→20:19)
[2016-11-19] MEDS: ASPIRIN 81 MG CHEWABLE TABLET PO SCH (08:19)
[2016-11-19] MEDS: DOCUSATE SODIUM 100 MG CAPSULE PO SCH ×2 (08:19→20:19)
[2016-11-19] MEDS: VITAMIN B COMP/VIT C/FOLIC ACID CAPSULE PO SCH (08:19)
[2016-11-19 11:01] LABS: GLUCOSE COMMENT 1 Received Meds; GLUCOSE,POINT OF CARE 139 MG/DL (70-110)
[2016-11-19 11:01] LABS: GLUCOSE COMMENT 1 Received Meds; GLUCOSE,POINT OF CARE 197 MG/DL (70-110)
[2016-11-19 11:30] VITALS: BP 126/61
[2016-11-19] MEDS: INSULIN ASPART 100 UNITS/ML SQ PRN ×2 (12:09→20:56)
[2016-11-19] MEDS: EPOETIN ALFA 10,000 UNITS/ML 2 ML VIAL SQ SCH (13:00)
[2016-11-19 15:28] VITALS: BP 144/92
[2016-11-19 19:34] VITALS: BP 135/87
[2016-11-19 19:47] LABS: GLUCOSE COMMENT 1 Received Meds; GLUCOSE,POINT OF CARE 183 MG/DL (70-110)
[2016-11-19] MEDS: OxyCODONE HCL/ACETAMINOPHEN 5-325 MG TABLET PO PRN (20:19)
[2016-11-19] MEDS: ATORVASTATIN CALCIUM 20 MG TABLET PO SCH (20:19)
[2016-11-19] MEDS ORDERED: 0.9% SODIUM CHLORIDE 5 ML NEB SOLUTION NEB ONE (22:43)
[2016-11-19 23:07] VITALS: BP 123/65
[2016-11-20 01:52] LABS: GLUCOSE,POINT OF CARE 221 MG/DL (70-110)
[2016-11-20] MEDS: INSULIN ASPART 100 UNITS/ML SQ PRN ×4 (05:35→20:35)
[2016-11-20 05:55] VITALS: BP 132/76
[2016-11-20 06:03] LABS: BASOPHILS # (AUTO) 0.03 K/uL (0.00-0.20); BASOPHILS % (AUTO) 0.5 % (0.0-2.0); EOSINOPHILS % (AUTO) 4.06 % (1.0-6.0); HEMATOCRIT 24.1 % (41-53); HEMOGLOBIN 7.7 g/dL (13.5-17.5); LYMPHOCYTES # (AUTO) 1.2 K/uL (1.0-4.8); LYMPHOCYTES % (AUTO) 15.7 % (22.0-44.0); MEAN CORPUSCULAR HEMOGLOBIN 29.1 pg (26.0-34.0); MEAN CORPUSCULAR HGB CONC 31.7 G/dL (31.0-37.0); MEAN CORPUSCULAR VOLUME 92 fL (80-100); MONOCYTES # (AUTO) 0.7 K/uL (0.1-1.0); MONOCYTES % (AUTO) 8.8 % (2.0-9.0); NEUTROPHILS # (AUTO) 5.3 K/uL (1.8-7.7); PLATELET COUNT (AUTO) 321 K/uL (150-450); RED BLOOD CELL COUNT(AUTO) 2.63 MIL/uL (4.50-5.90); RED CELL DISTRIBUTION WIDTH 18.5 % (11.5-14.5); WHITE BLOOD COUNT (AUTO) 7.4 K/uL (4.5-11.0)
[2016-11-20 06:55] LABS: CALCIUM, TOTAL 9.1 mg/dL (8.8-10.5); CREATININE 5.45 mg/dL (0.60-1.30); MAGNESIUM 1.8 mg/dL (1.80-2.40); PHOSPHORUS 3.1 mg/dL (2.5-4.9); POTASSIUM 4.8 mmol/L (3.5-5.1); TOTAL PROTEIN, SERUM 7.5 g/dL (6.4-8.2)
[2016-11-20 07:13] VITALS: BP 118/72
[2016-11-20] MEDS: PANTOPRAZOLE SODIUM 40 MG DR TABLET PO SCH (08:09)
[2016-11-20] MEDS: ASPIRIN 81 MG CHEWABLE TABLET PO SCH (08:09)
[2016-11-20] MEDS: TICAGRELOR 90 MG TABLET PO SCH ×2 (08:09→20:33)
[2016-11-20] MEDS: VITAMIN B COMP/VIT C/FOLIC ACID CAPSULE PO SCH (08:09)
[2016-11-20] MEDS: OxyCODONE HCL/ACETAMINOPHEN 5-325 MG TABLET PO PRN ×2 (08:10→16:39)
[2016-11-20] MEDS: DOCUSATE SODIUM 100 MG CAPSULE PO SCH ×2 (08:12→20:33)
[2016-11-20] MEDS: HEPARIN SODIUM,PORCINE 5,000 UNITS/ML VIAL SQ SCH ×2 (08:12→20:34)
[2016-11-20 11:47] LABS: GLUCOSE COMMENT 1 Received Meds; GLUCOSE,POINT OF CARE 216 MG/DL (70-110)
[2016-11-20 11:56] VITALS: BP 121/68
[2016-11-20 13:23] LABS: GLUCOSE,POINT OF CARE 159 MG/DL (70-110)
[2016-11-20 13:33] LABS: APPEARANCE,UNSPUN,BODY FLUID HAZY (CLEAR); COLOR,BODY FLUID YELLOW (LT YELLOW)
[2016-11-20 15:03] VITALS: BP 122/79
[2016-11-20 19:11] VITALS: BP 103/61
[2016-11-20 20:06] LABS: GLUCOSE COMMENT 1 Received Meds; GLUCOSE,POINT OF CARE 239 MG/DL (70-110)
[2016-11-20] MEDS: ATORVASTATIN CALCIUM 20 MG TABLET PO SCH (20:33)
[2016-11-20 23:17] VITALS: BP 115/58
[2016-11-21 04:21] VITALS: BP 121/68
[2016-11-21] MEDS: INSULIN ASPART 100 UNITS/ML SQ PRN ×4 (05:48→20:30)
[2016-11-21 06:21] LABS: BASOPHILS % (AUTO) 0.4 % (0.0-2.0); EOSINOPHILS % (AUTO) 4.5 % (1.0-6.0); HEMATOCRIT 26.1 % (41-53); HEMOGLOBIN 8.3 g/dL (13.5-17.5); LYMPHOCYTES # (AUTO) 1.3 K/uL (1.0-4.8); LYMPHOCYTES % (AUTO) 14.5 % (22.0-44.0); MEAN CORPUSCULAR HGB CONC 31.6 G/dL (31.0-37.0); MEAN CORPUSCULAR VOLUME 92 fL (80-100); MONOCYTES # (AUTO) 0.9 K/uL (0.1-1.0); MONOCYTES % (AUTO) 9.5 % (2.0-9.0); NEUTROPHILS # (AUTO) 6.5 K/uL (1.8-7.7); NEUTROPHILS % (AUTO) 71.1 % (40.0-70.0); PLATELET COUNT (AUTO) 308 K/uL (150-450); RED BLOOD CELL COUNT(AUTO) 2.84 MIL/uL (4.50-5.90); RED CELL DISTRIBUTION WIDTH 17.9 % (11.5-14.5); WHITE BLOOD COUNT (AUTO) 9.1 K/uL (4.5-11.0)
[2016-11-21 07:32] LABS: GLUCOSE COMMENT 1 Received Meds; GLUCOSE,POINT OF CARE 187 MG/DL (70-110)
[2016-11-21 07:50] VITALS: BP 144/84
[2016-11-21] MEDS: OxyCODONE HCL/ACETAMINOPHEN 5-325 MG TABLET PO PRN (08:41)
[2016-11-21] MEDS: DOCUSATE SODIUM 100 MG CAPSULE PO SCH ×2 (09:00→20:11)
[2016-11-21] MEDS: HEPARIN SODIUM,PORCINE 5,000 UNITS/ML VIAL SQ SCH ×2 (09:00→20:11)
[2016-11-21] MEDS ORDERED: EPOETIN ALFA 10,000 UNITS/ML 2 ML VIAL SQ SCH (09:00)
[2016-11-21 09:37] LABS: RBC MORPHOLOGY COMMENT ABNORMAL RBC MORPH
[2016-11-21] MEDS: DiphenhydrAMINE HCL 50 MG/ML VIAL IVP PRN (10:45)
[2016-11-21 11:26] VITALS: BP 134/79
[2016-11-21] MEDS ORDERED: HEPARIN SODIUM,PORCINE 1,000 UNITS/ML VIAL IVP ONE ×2 (14:15)
[2016-11-21] MEDS ORDERED: MANNITOL 25%-12.5 GM/50 ML VIAL IVP PRN (14:15)
[2016-11-21] MEDS ORDERED: DiphenhydrAMINE HCL 50 MG/ML VIAL IVP PRN (14:15)
[2016-11-21] MEDS: PANTOPRAZOLE SODIUM 40 MG DR TABLET PO SCH (15:14)
[2016-11-21] MEDS: TICAGRELOR 90 MG TABLET PO SCH ×2 (15:14→20:10)
[2016-11-21] MEDS: EPOETIN ALFA 10,000 UNITS/ML 2 ML VIAL SQ SCH (15:14)
[2016-11-21] MEDS: ASPIRIN 81 MG CHEWABLE TABLET PO SCH (15:14)
[2016-11-21] MEDS: VITAMIN B COMP/VIT C/FOLIC ACID CAPSULE PO SCH (15:14)
[2016-11-21 15:26] VITALS: BP 92/62
[2016-11-21 19:26] VITALS: BP 103/61
[2016-11-21] MEDS: ATORVASTATIN CALCIUM 20 MG TABLET PO SCH (20:10)
[2016-11-21 23:53] VITALS: BP 132/78
[2016-11-22 02:52] LABS: GLUCOSE COMMENT 1 Received Meds; GLUCOSE,POINT OF CARE 179 MG/DL (70-110)
[2016-11-22 03:21] LABS: GLUCOSE COMMENT 1 Received Meds; GLUCOSE,POINT OF CARE 216 MG/DL (70-110)
[2016-11-22 04:59] VITALS: BP 115/68
[2016-11-22] MEDS: INSULIN ASPART 100 UNITS/ML SQ PRN ×2 (05:42→12:24)
[2016-11-22 06:14] LABS: BASOPHILS # (AUTO) 0.03 K/uL (0.00-0.20); BASOPHILS % (AUTO) 0.4 % (0.0-2.0); EOSINOPHILS # (AUTO) 0.34 K/uL (0.00-0.70); HEMATOCRIT 23.7 % (41-53); HEMOGLOBIN 7.6 g/dL (13.5-17.5); LYMPHOCYTES # (AUTO) 1.1 K/uL (1.0-4.8); LYMPHOCYTES % (AUTO) 13.5 % (22.0-44.0); MEAN CORPUSCULAR HEMOGLOBIN 28.9 pg (26.0-34.0); MEAN CORPUSCULAR HGB CONC 31.9 G/dL (31.0-37.0); MEAN CORPUSCULAR VOLUME 91 fL (80-100); MONOCYTES # (AUTO) 0.8 K/uL (0.1-1.0); MONOCYTES % (AUTO) 10.4 % (2.0-9.0); NEUTROPHILS # (AUTO) 5.7 K/uL (1.8-7.7); NEUTROPHILS % (AUTO) 71.5 % (40.0-70.0); PLATELET COUNT (AUTO) 288 K/uL (150-450); RED BLOOD CELL COUNT(AUTO) 2.62 MIL/uL (4.50-5.90)
[2016-11-22 06:17] LABS: CREATININE 4.45 mg/dL (0.60-1.30); MAGNESIUM 1.6 mg/dL (1.80-2.40); PHOSPHORUS 2.6 mg/dL (2.5-4.9); POTASSIUM 5.3 mmol/L (3.5-5.1)
[2016-11-22 06:39] LABS: RBC MORPHOLOGY COMMENT ABNORMAL RBC MORPH
[2016-11-22 07:09] VITALS: BP 123/78
[2016-11-22] MEDS: HEPARIN SODIUM,PORCINE 5,000 UNITS/ML VIAL SQ SCH (09:00)
[2016-11-22] MEDS: DOCUSATE SODIUM 100 MG CAPSULE PO SCH (09:00)
[2016-11-22] MEDS: ASPIRIN 81 MG CHEWABLE TABLET PO SCH (09:22)
[2016-11-22] MEDS: PANTOPRAZOLE SODIUM 40 MG DR TABLET PO SCH (09:22)
[2016-11-22] MEDS: VITAMIN B COMP/VIT C/FOLIC ACID CAPSULE PO SCH (09:22)
[2016-11-22] MEDS: TICAGRELOR 90 MG TABLET PO SCH (09:22)
[2016-11-22 11:27] VITALS: BP 135/75
[2016-11-22 20:06] LABS: GLUCOSE COMMENT 1 Received Meds; GLUCOSE,POINT OF CARE 187 MG/DL (70-110)
[2016-11-22 20:07] LABS: GLUCOSE COMMENT 1 Received Meds; GLUCOSE,POINT OF CARE 169 MG/DL (70-110)
[2016-11-22 20:17] LABS: GLUCOSE COMMENT 1 Received Meds; GLUCOSE,POINT OF CARE 205 MG/DL (70-110)
[2016-11-22 20:43] LABS: GLUCOSE,POINT OF CARE 203 MG/DL (70-110)
== END 2016-11-22 16:05 | disposition home or self-care (01) | DRG 643 ==
LOC: EMS 19:56 → 5N 22:53
PROVIDERS: ADMIT Internal Medicine; ATTEND Internal Medicine
PROC: 5A1D60Z (ICD-10-PCS; principal; 2016-11-18)
PROC: 0W993ZZ Drainage of Right Pleural Cavity, Percutaneous Approach (ICD-10-PCS; 2016-11-20)
PROC: 0GBG3ZX Excision of Left Thyroid Gland Lobe, Percutaneous Approach, Diagnostic (ICD-10-PCS; 2016-11-20)
PROC: 0WB63ZX Excision of Neck, Percutaneous Approach, Diagnostic (ICD-10-PCS; 2016-11-20)
DX: E07.9 Disorder of thyroid, unspecified (principal); N18.6 End stage renal disease; E43 Unspecified severe protein-calorie malnutrition; J90 Pleural effusion, not elsewhere classified; I13.2 Hypertensive heart and chronic kidney disease with heart failure and with stage 5 chronic kidney disease, or end stage renal disease; R22.1 Localized swelling, mass and lump, neck; E11.21 Type 2 diabetes mellitus with diabetic nephropathy; D63.8 Anemia in other chronic diseases classified elsewhere; I25.10 Atherosclerotic heart disease of native coronary artery without angina pectoris; E11.22 Type 2 diabetes mellitus with diabetic chronic kidney disease; E11.319 Type 2 diabetes mellitus with unspecified diabetic retinopathy without macular edema; Z53.29 Procedure and treatment not carried out because of patient's decision for other reasons; I50.9 Heart failure, unspecified; E11.51 Type 2 diabetes mellitus with diabetic peripheral angiopathy without gangrene; E11.40 Type 2 diabetes mellitus with diabetic neuropathy, unspecified; H54.8 Legal blindness, as defined in USA; E11.65 Type 2 diabetes mellitus with hyperglycemia; I25.5 Ischemic cardiomyopathy; R62.7 Adult failure to thrive; Z88.8 Allergy status to other drugs, medicaments and biological substances; Z87.891 Personal history of nicotine dependence; Z95.5 Presence of coronary angioplasty implant and graft; Z99.2 Dependence on renal dialysis; Z89.512 Acquired absence of left leg below knee; Z68.23 Body mass index [BMI] 23.0-23.9, adult; Z89.442 Acquired absence of left ankle; Z79.82 Long term (current) use of aspirin; I25.2 Old myocardial infarction; Z79.4 Long term (current) use of insulin; Z79.899 Other long term (current) drug therapy
CPT/HCPCS: 21550; 32555; 60100; 70491; 76942; 82465; 82728; 82945; 82962; 83540; 83550; 83615; 83735; 83986; 84100; 84155; 84157; 84443; 87015; 87070; 87081; 87101; 87205; 87340; 88108; 88305; 88341; 88342; 89051; 90935; 93005; 94640; 96374; 96375; 99285; J0885; J1200; J1644; J1940; J2405; J7030; J7050